=== PATIENT | female | born 1945 | race Caucasian/White ===

== ENCOUNTER 2025-10-09 13:53 | Inpatient (IN) | payer MEDICARE, SELFPAY ==
[2025-10-09] VITALS (21 sets, daily range): BP systolic 91–142; BP diastolic 37–71; PULSE 87–126; RESP 13–21; TEMP 36.7–36.9; O2SAT 88–99; BMI 29.6
--- NOTE | 2025-10-09 | IR_ITS ---
APPROVED REPORT Patient Location: Inpatient Script Supervisor: JERRY Daniel RT (R) PROCEDURES Right heart catheterization Selective engagement right pulmonary artery angiogram Selective right pulmonary artery angiogram Catheter placed in the left pulmonary artery Selective left pulmonary artery angiogram Computer assisted vacuum thrombectomy of right main and right interlobular PA Post thrombectomy right pulmonary artery selective angiogram Z-stitch suture to right groin for hemostasis INDICATION Submassive pulmonary embolism, Right ventricular strain, Elevated troponin Informed consent was obtained prior to the procedure. COMPLICATIONS None Estimated Blood Loss: 200 mls TECHNIQUE Patient placed supine on table, right groin prepped and draped in usual sterile fashion. One percent lidocaine was used to anesthetize the right groin. The right femoral vein was accessed via the Seldinger technique. 7 fr sheath inserted, upsized to 11 fr and then ending with [address] 5 fr angled pigtail catheter inserted and advanced to pulmonary arteries. Pulmonary angiogram was performed using hand injection with the catheter placed in the right main and then the left main pulmonary artery. This demonstrated filling defects in right main and right interlobular pulmonary arteries. Using a guide wire the right lower lobe was accessed and pigtail catheter removed over the wire. The lightning flash catheter was then advanced through the right side of the heart to the right pulmonary artery and aspiration thrombectomy was performed after removing the wire throughout the right pulmonary artery the upper middle and lower interlobar branches. Selective right main pulmonary artery angiogram using hand injection was performed following the extensive thrombectomy. The catheter was then used to selectively intubate the left pulmonary artery where pulmonary artery selective angiography was performed. Pulmonary artery pressure 60 mmHg lightning catheter and sheath removed, hemostasis was achieved by Z-stitch suture. Patient transferred to post op holding for recovery. 200 cc of blood was aspirated during the procedure IMPRESSION Successful Selective bilateral pulmonary angiograms Successful Computer assisted vacuum thrombectomy of right main and right interlobular pulmonary arteries Successful Pulmonary angiogram post-thrombectomy selective right PA Successful Z-stitch suture to right groin for hemostasis PLAN 1. Post op wound care. 2. Further evaluation by GI for recent GI bleed 3. Continue anticoagulation 4. Monitor H&H Electronically signed by : Haresh Sol MD 10/10/2025 10:43:58
--- NOTE | 2025-10-09 13:57 | EXP.HP ---
History of Present Illness *Admission Date: 10/09/25 *Reason for visit:: dyspnea; PE *History of present illness: Ms. Mancilla is a 80-year-old female with history of GERD, hypertension, A-fib, a remote history of blood clots, nd progressive debility who was recently discontinued off her anticoagulation for A-fib due to concern for GI bleed in the past 3 weeks. She was awaiting EGD/colonoscopy scheduled to happen within the next week. She became more weak and short of breath at her nursing facility which led to her going to the ER at [facility] last night. On arrival, workup was performed with CT PE obtained showing significant pulmonary emboli burden bilaterally with right heart strain. Was initiated on anticoagulation. Cardiology was consulted at [facility]. Their recommendation was transfer to higher level of care for further management. Cardiology service at [facility] was contacted and patient graciously accepted for further care and definitive treatment with thrombectomy. Patient excepted to medicine for transfer. On arrival she was urgently taken to [facility] for thrombectomy. Extensive clot burden removed from bilateral pulmonary vasculature with improvement in her oxygenation almost immediately. After arriving to the floor, spent some time talking to patient and reviewing her chart. States she is feeling somewhat better. Is still a little groggy from anesthesia from her thrombectomy. Son at bedside helps supplement history. Denies any chest pain, nausea, vomiting. Is currently on 6 L oxygen simple mask satting 97%. Heart rate in the 110s secondary to her A-fib. Reviewed patient's chart from [facility]. Had normal kidney function with creatinine 1.0. Coags with INR of 1.3. CT obtained today showed diffuse bilateral pulmonary emboli with evidence of right heart strain with RV to LV ratio greater than 1. Troponin elevated at 160 on their high-sensitivity test which is positive. Also had small bilateral pleural and pericardial effusion. Reportedly had been on Eliquis for A-fib and this had been held. Unsure the exact timeline. Reported concern for possible GI bleed and supposed to see gastroenterology for EGD. Patient taken for thrombectomy upon arrival to our facility. Extensive clot burden removed from bilateral pulmonary vasculature Appears her Eliquis was held within the past 10-14 days for concern for GI bleed. Has not had endoscopy as of yet to my understanding from chart review. COVID and flu negative [facility] Disclaimer: The information contained in this section may have been updated after the patient was seen, as this information can be updated by other users. Medical History Hemolytic anemia Kidney stones Hypertension Hyperlipidemia GERD (gastroesophageal reflux disease) Atrial fibrillation Arthritis Surgical History History of splenectomy History of lumpectomy Hx of tonsillectomy Hx of appendectomy Family History Father TIA (transient ischemic attack) Stroke Hypertension Social History Smoking Status: Never smoker alcohol intake: never current occupational status: retired Travel in the last 8 weeks?: None Have you lived/traveled outside US in past 30 days?: No Contact w/someone who lives/traveled outside US past 30 days?: No Exposure to someone with infectious disease in past 14 days?: No Do you have a fever (greater than 100.4 F or 38 C)?: No Have you tested positive for COVID-19?: No Exposed to someone with COVID-19 in past 14 days?: No Do you have a sore throat?: No Do you have a cough?: No Do you have any weakness?: No Are you experiencing any nausea/vomitting?: No Do you have any diarrhea?: No Are you experiencing any unusual bleeding?: No Do you have any muscle aches/pain?: No Do you have any abdominal pain?: No Are you experiencing loss of taste or smell?: No Review of Systems Review of Systems Review of systems (narrative): 14 point review of systems performed, pertinent positives and negatives as per HPI Meds Home Medications and Allergies Home Medications ?Medication ?Instructions ?Recorded ?Confirmed ?Type diltiazem HCl 60 mg tablet 60 mg PO TID 10/09/25 10/09/25 History fenofibrate 150 mg capsule 145 mg PO DAILY 10/09/25 10/09/25 History ferrous sulfate 325 mg (65 mg 325 mg PO BID 10/09/25 10/09/25 History iron) tablet metoprolol succinate 50 mg 50 mg PO DAILY 10/09/25 10/09/25 History tablet,extended release 24 hr mirtazapine 15 mg tablet (Remeron) 15 mg PO HS 10/09/25 10/09/25 History pantoprazole 40 mg tablet,delayed 40 mg PO BID 10/09/25 10/09/25 History release (Protonix) sertraline 25 mg tablet 25 mg PO DAILY 10/09/25 10/09/25 History New Prescriptions to Start Prescriptions: Allergies Allergy/AdvReac Type Severity Reaction Status Date / Time No Known Allergies Allergy Verified 10/09/25 14:06 Exam Constitutional Constitutional: no acute distress, obese, chronically ill appearing and cooperative *Routine HEENT Exam Head: Present normocephalic Eye: Present EOMI and PERRL ENT: Present mucous membranes moist Comments: Right IJ with bandage, no active bleeding *Routine Neck Exam Neck: Present supple; Absent lymphadenopathy *Routine Respiratory Exam Respiratory: Present CTA bilaterally; Absent respiratory distress, rhonchi, stridor, wheezes or crackles *Routine Cardiovascular Exam Cardiovascular: Present tachycardia and irregularly irregular *Routine Abdominal Exam Abdominal: Present soft and normoactive bowel sounds; Absent tenderness *Routine Rectal Exam Rectal:: deferred *Routine Genitalia Exam Genitalia:: deferred *Routine Extremities Exam Extremities: Present edema (Trace ankle edema bilaterally); Absent cyanosis or clubbing *Routine Skin Exam Skin: Present intact and warm; Absent rash *Routine Neurological Exam Neurological: Present alert, oriented X3 and moving all extremities; Absent altered mental status Assessment and Plan *Assessment and plan (1) Pulmonary emboli: Status: Acute Category: Medical Code(s): I26.99 - Other pulmonary embolism without acute cor pulmonale (2) Cor pulmonale, acute: Status: Acute Category: Medical Code(s): I26.09 - Other pulmonary embolism with acute cor pulmonale (3) GERD (gastroesophageal reflux disease): Status: Acute Qualifiers: Esophagitis presence: esophagitis presence not specified Qualified Code(s): K21.9 - Gastro-esophageal reflux disease without esophagitis Category: Medical Code(s): K21.9 - Gastro-esophageal reflux disease without esophagitis (4) Hypertension: Status: Acute Qualifiers: Hypertension type: primary hypertension Qualified Code(s): I10 - Essential (primary) hypertension Category: Medical Code(s): I10 - Essential (primary) hypertension (5) Hyperlipidemia: Status: Acute Qualifiers: Hyperlipidemia type: mixed hyperlipidemia Qualified Code(s): E78.2 - Mixed hyperlipidemia Category: Medical Code(s): E78.5 - Hyperlipidemia, unspecified (6) Atrial fibrillation: Status: Acute Qualifiers: Atrial fibrillation type: unspecified chronic Qualified Code(s): I48.20 - Chronic atrial fibrillation, unspecified Category: Medical Code(s): I48.91 - Unspecified atrial fibrillation (7) Anemia: Status: Acute Category: Medical Code(s): D64.9 - Anemia, unspecified (8) Hypokalemia: Status: Acute Category: Medical Code(s): E87.6 - Hypokalemia Plan 80-year-old female who presented as transfer from [facility] due to concern for cor pulmonale and submassive PE. Found to have right heart strain on CT with elevated troponin. Discussed case with electric motor repairman, recommends transfer and acceptance for thrombectomy. I decided to admit for further care. Taken urgently to the [facility] on arrival. Successful thrombectomy of right pulmonary vasculature performed. Had improvement in oxygenation. Admitted to ICU for further management. Problems addressed as follows: Pulmonary emboli Cor pulmonale Atrial fibrillation -I reviewed outside hospital records including CT read showing RV/LV ratio greater than 1, extensive burden of clot bilaterally. - Troponin elevated above 160 on fifth GEN high-sensitivity. - Significant oxygen requirement of 15 L prior to transfer - Successful thrombectomy performed. Will transition to therapeutic Lovenox 1 mg/kg twice daily. Monitor for signs of bleeding - Plan to resume Eliquis prior to discharge home - Formal echo obtained, read pending. Appears to show preserved EF on preliminary read - Resume metoprolol 50 mg succinate daily for A-fib. - Repeat CBC, CMP, magnesium ordered for the morning. - Troponin here detectable initially at 0.11. Serial levels pending Depression: Continue Zoloft 25 mg daily Suspected GI bleed - Previously held anticoagulation due to suspected GI bleed. Have consulted GI to evaluate for possible scope although patient does not have active bleeding at this time. Hemoglobin stable at 10. Transfusion threshold hemoglobin less than 7 - Continue pantoprazole 40 mg IV twice daily - N.p.o. at midnight Full code Therapeutic Lovenox Cardiac diet
[2025-10-09] MEDS: HEPARIN 1,000 UNITS/500ML NS (CATH LAB) 3000 UNIT IV (14:27)
[2025-10-09] MEDS: LIDOCAINE 1% 10ML MDV 10 ML IJ (14:27)
[2025-10-09] MEDS: 0.9 % SODIUM CHLORIDE 500 ML 25 ML IV (14:27)
[2025-10-09] MEDS: MIDAZOLAM HCL 1MG/ML 5ML VIAL 1 MG IV (14:37)
[2025-10-09] MEDS: FENTANYL 100MCG/2ML VIAL 50 MCG IV (14:37)
[2025-10-09] MEDS: HEPARIN 1,000 UNITS/ML 10ML VIAL (CATH LAB) 5000 UNIT IV (14:39)
--- NOTE | 2025-10-09 14:42 | PC.NURSE ---
patient arrived at to the unit via ems on stretcher at 1334
--- NOTE | 2025-10-09 14:42 | PC.NURSE ---
At 1403 Nithya with laboratory immunologist called saying patient was going down for pulmonary embolectomy and to obtain consent.
--- NOTE | 2025-10-09 14:43 | PC.NURSE ---
AT 1407 consent signed by patient for the procedure.
--- NOTE | 2025-10-09 15:13 | P.CONCA_ITS ---
History of Present Illness History of Present Illness Consult date: 10/09/25 Requesting physician: Jus Green Chief complaint: weakness, SOB History of present illness: This is a 80-year-old female who presented to [facility] with complaints of weakness and fatigue that had been persisting the last several weeks. She was also short of breath with exertion. It improves with rest. The patient was found to have massive bilateral pulmonary emboli with right RV strain noted on CT. The patient was then transferred here to [facility] to undergo thrombectomy. She denied any chest pain or pressur e. She denied any lower extremity edema. She denies any fever, chills, nausea, vomiting, PND or orthopnea. She has been having persistent diarrhea for the last 4 to 5 weeks and was scheduled to undergo EGD and colonoscopy with Dr. Mccurdy in the near future. She states that she has been so weak and fatigued that she could not do anything that she typically does. Her oxygen saturations were also decreased at [place] and she was requiring oxygen at 8 L nasal cannula upon arrival here to [facility]. Of note, the patient does have a history of atrial fibrillation. She has been off of her Eliquis per records from [facility] since August but it is unclear exactly why the Eliquis was stopped. [facility] Disclaimer: The information contained in this section may have been updated after the patient was seen, as this information can be updated by other users. Medical History (Updated 10/09/25 @ 15:18 by Haresh Sol MD) Hemolytic anemia Kidney stones Hypertension Hyperlipidemia GERD (gastroesophageal reflux disease) Atrial fibrillation Arthritis Surgical History (Updated 10/09/25 @ 14:35 by Linda Meyer RN) History of splenectomy History of lumpectomy Hx of tonsillectomy Hx of appendectomy Family History (Updated 10/09/25 @ 14:35 by Linda Meyer RN) TIA (transient ischemic attack) Father Hypertension Father Stroke Father Social History (Updated 10/09/25 @ 14:36 by Linda Meyer RN) Smoking Status: Never smoker alcohol intake: never current occupational status: retired Travel in the last 8 weeks?: None Have you lived/traveled outside US in past 30 days?: No Contact w/someone who lives/traveled outside US past 30 days?: No Exposure to someone with infectious disease in past 14 days?: No Do you have a fever (greater than 100.4 F or 38 C)?: No Have you tested positive for COVID-19?: No Exposed to someone with COVID-19 in past 14 days?: No Do you have a sore throat?: No Do you have a cough?: No Do you have any weakness?: No Are you experiencing any nausea/vomitting?: No Do you have any diarrhea?: No Are you experiencing any unusual bleeding?: No Do you have any muscle aches/pain?: No Do you have any abdominal pain?: No Are you experiencing loss of taste or smell?: No Review of Systems Review of Systems Review of systems:: pertinent systems reviewed and negative unless documented below Constitutional Constitutional: Reports system reviewed and no additional complaints, except as documented, Reports lethargy, Reports malaise and Reports weakness Eyes Eyes: Reports system reviewed and no additional complaints, except as documented ENT Ears, Nose, Mouth, and Throat: Reports system reviewed and no additional complaints, except as documented *Cardiovascular Cardiovascular: Reports system reviewed and no additional complaints, except as documented, Denies chest pain, Reports dyspnea and Reports dyspnea on exertion *Respiratory Respiratory: Reports system reviewed and no additional complaints, except as documented, Reports dyspnea and Reports dyspnea on exertion *Gastrointestinal Gastrointestinal: Reports system reviewed and no additional complaints, except as documented *Genitourinary Genitourinary: Reports system reviewed and no additional complaints, except as documented *Musculoskeletal Musculoskeletal: Reports system reviewed and no additional complaints, except as documented Integumentary/Breasts Skin/Breast: Reports system reviewed and no additional complaints, except as documented *Neurologic Neurologic: Reports system reviewed and no additional complaints, except as documented and Reports weakness Psychiatric Psychiatric: Reports system reviewed and no additional complaints, except as documented Endocrine Endocrine: Reports system reviewed and no additional complaints, except as documented Hematologic/Lymphatic Hematologic/Lymphatic: Reports system reviewed and no additional complaints, except as documented Allergic/Immunologic Allergic/Immunologic: Reports system reviewed and no additional complaints, except as documented Exam Data for Last 24 hours Vital signs and Labs for Last 24 Hours: Pulse Pulse Ox O2 Del Method O2 Flow Rate 122 H 95 Nasal Cannula 8 10/09/25 14:05 10/09/25 14:05 10/09/25 14:05 10/09/25 14:05 Laboratory Results - last 24 hr 10/09/25 14:34: WBC 10.0, RBC 1.96 L*, Hgb 10.0 L, Hct 16.2 L*, MCV 82.7, MCH 51.0 H*, MCHC 61.7 H*, RDW 16.3, Plt Count 320, MPV 11.4 H, Neut % (Auto) 76.2, Lymph % (Auto) 13.8, [place] % (Auto) 8.4, Eos % (Auto) 0.1, Baso % (Auto) 0.1, Neut # (Auto) 7.6, Lymph # (Auto) 1.4, [place] # (Auto) 0.8, Eos # (Auto) 0.0, Baso # (Auto) 0.0 I & O for Last 24 hours: Intake & Output 10/07/25 10/08/25 10/09/25 10/10/25 11:59 11:59 11:59 11:59 Weight 162 lb 0.636 oz Constitutional Constitutional: mild distress and average body habitus *Routine HEENT Exam Head: Present normocephalic Eye: Present EOMI and PERRL ENT: Present mucous membranes moist *Routine Neck Exam Neck: Present supple; Absent lymphadenopathy *Routine Respiratory Exam Respiratory: Present decreased breath sounds *Routine Cardiovascular Exam Cardiovascular: Present RRR, Normal S1, Normal S2 and tachycardia *Routine Abdominal Exam Abdominal: Present soft and normoactive bowel sounds; Absent tenderness *Routine Extremities Exam Extremities: Absent cyanosis, clubbing or edema *Routine Skin Exam Skin: Present warm; Absent rash *Routine Neurological Exam Neurological: Present alert and oriented X3 Meds Home Medications and Allergies Home Medications ?Medication ?Instructions ?Recorded ?Confirmed ?Type diltiazem HCl 60 mg tablet 60 mg PO TID 10/09/2510/09 History fenofibrate 150 mg capsule 145 mg PO DAILY 10/09/25 History ferrous sulfate 325 mg (65 mg 325 mg PO BID 10/09/25 1 12/09/24 History iron) tablet metoprolol succinate 50 mg 50 mg PO DAILY 10/09/2510/23 History tablet,extended release 24 hr mirtazapine 15 mg tablet (Remeron) 15 mg PO HS 5 10/09/25 History pantoprazole 40 mg tablet,delayed 40 mg PO BID 5 10/09/25 History release (Protonix) sertraline 25 mg tablet 25 mg PO DAILY 10/09/2509/29 History New Prescriptions to Start Prescriptions: Allergies Allergy/AdvReac Type Severity Reaction Status Date / Time No Known Allergies Allergy Verified 10/09/25 14:06 Assessment and Plan *Assessment and plan (1) Pulmonary emboli: Status: Acute Qualifiers: Pulmonary embolism type: saddle Chronicity: acute Acute cor pulmonale presence: with acute cor pulmonale Qualified Code(s): I26.02 - Saddle embolus of pulmonary artery with acute cor pulmonale Category: Medical Code(s): I26.99 - Other pulmonary embolism without acute cor pulmonale (2) Cor pulmonale, acute: Status: Acute Category: Medical Code(s): I26.09 - Other pulmonary embolism with acute cor pulmonale (3) Atrial fibrillation: Status: Acute Qualifiers: Atrial fibrillation type: unspecified chronic Qualified Code(s): I48.20 - Chronic atrial fibrillation, unspecified Category: Medical Code(s): I48.91 - Unspecified atrial fibrillation (4) Hyperlipidemia: Status: Acute Qualifiers: Hyperlipidemia type: mixed hyperlipidemia Qualified Code(s): E78.2 - Mixed hyperlipidemia Category: Medical Code(s): E78.5 - Hyperlipidemia, unspecified (5) Hypertension: Status: Acute Qualifiers: Hypertension type: primary hypertension Qualified Code(s): I10 - Essential (primary) hypertension Category: Medical Code(s): I10 - Essential (primary) hypertension (6) GERD (gastroesophageal reflux disease): Status: Acute Qualifiers: Esophagitis presence: esophagitis presence not specified Qualified Code(s): K21.9 - Gastro-esophageal reflux disease without esophagitis Category: Medical Code(s): K21.9 - Gastro-esophageal reflux disease without esophagitis Plan Plan: 1. The patient was admitted here to [facility] for massive bilateral pulmonary emboli with RV strain. The patient will be taken to the [facility] to undergo mechanical thrombectomy of the bilateral pulmonary emboli. 2. The patient has been educated the risk and benefits of proceeding with thrombectomy. The patient verbalizes understanding and is agreeable to proceed ing with the procedure. 3. The patient will need to be anticoagulated following thrombectomy. She will need to be started on Eliquis 10 mg p.o. twice daily for 1 week then Eliquis 5 mg p.o. twice daily thereafter. 4. The patient does have known atrial fibrillation. Continue her metoprolol and diltiazem for atrial fibrillation suppression. And as mentioned above she will be on anticoagulation with Eliquis. 5. Her blood pressure is well-controlled. 7. Her LDL goal is less than 100. Will get a liver and lipid panel in the morning. 8. Will obtain an echocardiogram to evaluate her LV function. 9. Will obtain a CBC, BMP, and serial troponins. 10. Further recommendations will be made pending the patient's response to treatment and the results of her echocardiogram and thrombectomy today. Thank you for the opportunity to help dissipate in the care of this patient.
--- NOTE | 2025-10-09 15:22 | CA_ITS ---
APPROVED REPORT EXAM: Comprehensive 2D, Doppler, and color-flow Echocardiogram Industrial Sales Engineer: Latasha Katz RT(R) Ht: 5 ft 2 in Wt: 162lbs BSA: 1.75 BP: 135/74 mmHg Indications: post thrombectomy for pulmonary embolism. right heart strain seen on CT at outside facility. 2D Dimensions LVEF (Harden's) 67.10 % F: 54 - 74 LV Volume 58.70 mL F: 46 - 106 LV Volume Index 33.5 mL/m2 F: 29 - 61 LA Volume 53.30 mL LA Volume Index 30.46 mL/m2 (M/F) 16-34 EF AP4 66.40 % EF AP2 67.3 % EF BP 67.1 % GL Strain -16.2 % M-Mode Dimensions RVDd 3.40 cm (0.9-2.6) LA Diam 4.13 cm (1.9-4.0) LVDd 3.53 cm (3.5-5.7) LVDs 2.55 cm (3.5-5.7) IVSd 1.15 cm (0.6-1.1) PWd 0.72 cm (0.6-1.1) EF (Teich) 54.90% FS 27.80% EDV (Teich) 51.90 mL ESV (Teich) 23.40 mL Aortic Valve AI PHT 610.00 ms Tricuspid Valve TR P. Velocity 318.00 cm/s RAP Estimate 10.00 mmHg RVSP 50.50 mmHg Left Ventricle The left ventricle is normal size. Left ventricular systolic function is normal. The left ventricular ejection fraction is within the normal range. There is increased left ventricular wall thickness. There is normal LV segmental wall motion. Transmitral Doppler flow pattern suggests impaired LV relaxation. LVEF is 55% Right Ventricle Right ventricle is moderately dilated. Right ventricle is moderately to severely hypokinetic. Atria Left atrium is moderately dilated. Right atrium is moderately dilated. There is no color Doppler evidence of interatrial shunt. Aortic Valve The aortic valve is mildly thickened. There is no hemodynamically significant aortic valvular stenosis. Mild aortic regurgitation is present. Mitral Valve The mitral valve is normal in structure. No evidence of mitral valve stenosis. Mild mitral regurgitation is present. Tricuspid Valve The tricuspid valve leaflets are thin and pliable. Moderate tricuspid regurgitation. RVSP is 35-40 mmHg. Pulmonic Valve The pulmonary valve is grossly normal in structure. Mild pulmonic valve regurgitation is present. Great Vessels The aortic root is normal in size. IVC is normal in size and collapses >50% with inspiration. Pericardium There is no pericardial effusion. Other Information Study Quality: Fair Conclusion Normal LV systolic function. Moderate RV dilation with moderate to severe reduction in RV systolic function. Biatrial dilation. Moderate TR. Mild AI, mild MR. RVSP 35-40 mmHg. Electronically signed by : Emily Zuñiga MD 10/11/2025 03:39:53
[2025-10-09 15:27] LABS: Alanine Aminotransferase 14 U/L (12-78); Albumin Level 2.6 g/dl (3.5-5.0); Albumin/Globulin Ratio 0.8 (1.1-1.8); Alkaline Phosphatase 73 U/L (38-126); Anion Gap 8.8 mEq/L (5-15); Aspartate Amino Transferase 33 U/L (14-36); Bilirubin,Total 0.8 mg/dl (0.2-1.3); Blood Urea Nitrogen 9 mg/dl (7-17); Calcium 7.3 mg/dl (8.4-10.2); Carbon Dioxide 25 mmol/L (22.0-30.0); Chloride 100 mmol/L (98-107); Creatinine Clearance Estimated 54 mL/min (50-200); Creatinine,Serum 0.80 mg/dl (0.52-1.04); Estimated Glomerular Filt Rate 69 ml/min (>60); GFR (African American) 84 ML/MIN (>60); Globulin 3.2 g/dL (1.3-3.2); Glucose 99 mg/dl (74-100); Sodium 131 mmol/L (136-145); Total Protein,Serum 5.8 g/dl (6.3-8.2)
[2025-10-09] MEDS: IOPAMIDOL-370 (76%);100ML BOTTLE 105 ML IV (15:33)
[2025-10-09 15:37] LABS: Potassium 2.8 mmoL/L (3.5-5.1)
--- NOTE | 2025-10-09 15:57 | PC.NURSE ---
patient arrived back from the labor crew supervisor via stretcher at 1974
[2025-10-09 15:58] LABS: Troponin I 0.11 ng/ml (0.00-0.034)
[2025-10-09 16:22] LABS: Hematocrit 28.4 % (37.0-47.0); Hemoglobin 10.0 g/dL (12.2-16.2); Immature Granulocytes % 1.1 %; Mean Corpuscular HGB Conc 35.2 g/dL (31.8-35.4); Mean Corpuscular Hemoglobin 29.5 pg (27.0-31.2); Mean Corpuscular Volume 83.8 fl (81-99); Nucleated Red Blood Cells % 0.7 %; Platelet Count 335 K/mm3 (142-424); Red Blood Count 3.39 M/mm3 (4.20-5.40); Red Cell Distribution Width-SD 56.7 fL
[2025-10-09 16:23] LABS: White Blood Count 10.8 K/mm3 (4.8-10.8)
--- NOTE | 2025-10-09 17:21 | PC.NURSE ---
z stitch removed at 1715 covered site with sterile clean 4x4 and tegaderm
[2025-10-09] MEDS: POTASSIUM CHLORIDE 20MEQ TAB 40 MEQ PO ×3 (17:37→23:47)
[2025-10-09] MEDS: CALCIUM GLUC IN NACL, ISO-OSM 1 GM/50 ML BAG IV (18:04)
[2025-10-09 18:40] LABS: Troponin I 0.23 ng/ml (0.00-0.034)
[2025-10-09] MEDS: PANTOPRAZOLE 40MG VIAL 40 MG IV (20:05)
--- NOTE | 2025-10-09 20:52 | ECG_ITS ---
APPROVED REPORT Exam: Resting ECG HR:119 bpm ECG Measurements Heart Rate 119 AXES QRSd 134 QRS 74 QT 380 T -60 QTc 451 Conclusion ATRIAL FIBRILLATION WITH RAPID VENTRICULAR RESPONSE INTRAVENTRICULAR CONDUCTION DELAY [130+ ms QRS DURATION] ABNORMAL ECG UNCONFIRMED REPORT Electronically signed by : Edi Mackey MD 10/10/2025 07:53:55
--- NOTE | 2025-10-09 20:52 | PC.NURSE ---
Notified hospitalist per her request that EKG was done and able to be read at 205110/09/25
[2025-10-10] VITALS (32 sets, daily range): BP systolic 93–124; BP diastolic 53–84; PULSE 109–137; RESP 14–25; TEMP 36.4–37.1; O2SAT 90–94; BMI 29.8
[2025-10-10] MEDS: METOPROLOL TARTRATE 5MG/5ML VIAL 2.5 MG IV ×2 (03:30→04:03)
[2025-10-10 06:21] LABS: Hematocrit 26.8 % (37.0-47.0); Hemoglobin 9.4 g/dL (12.2-16.2); Immature Granulocytes % 1.3 %; Mean Corpuscular HGB Conc 35.1 g/dL (31.8-35.4); Mean Corpuscular Hemoglobin 28.9 pg (27.0-31.2); Mean Corpuscular Volume 82.5 fl (81-99); Nucleated Red Blood Cells % 1.3 %; Platelet Count 344 K/mm3 (142-424); Red Blood Count 3.25 M/mm3 (4.20-5.40); Red Cell Distribution Width-SD 56.6 fL; White Blood Count 8.5 K/mm3 (4.8-10.8)
[2025-10-10 06:49] LABS: Alanine Aminotransferase 17 U/L (12-78); Albumin Level 2.4 g/dl (3.5-5.0); Alkaline Phosphatase 77 U/L (38-126); Anion Gap 5.6 mEq/L (5-15); Aspartate Amino Transferase 27 U/L (14-36); Bilirubin,Direct 0.2 mg/dl (0.0-0.4); Bilirubin,Indirect 0.4 mg/dL (0.0-0.9); Bilirubin,Total 0.6 mg/dl (0.2-1.3); Bilirubin,Unconjugated 0.4 mg/dL (0.0-1.1); Blood Urea Nitrogen 8 mg/dl (7-17); Calcium 7.9 mg/dl (8.4-10.2); Carbon Dioxide 26 mmol/L (22.0-30.0); Chloride 103 mmol/L (98-107); Cholesterol 97 mg/dl (140-200); Creatinine Clearance Estimated 54 mL/min (50-200); Creatinine,Serum 0.90 mg/dl (0.52-1.04); Estimated Glomerular Filt Rate 61 ml/min (>60); GFR (African American) 73 ML/MIN (>60); Glucose 99 mg/dl (74-100); HDL Cholesterol 49 mg/dl (40-60); Potassium 3.6 mmoL/L (3.5-5.1); Sodium 131 mmol/L (136-145); Total Protein,Serum 5.0 g/dl (6.3-8.2); Triglycerides 181 mg/dl (30-150)
--- NOTE | 2025-10-10 07:26 | P.CONS_ITS ---
History of Present Illness *Admission Date: 10/09/25 *History of present illness: Mrs. Mancilla is a 80-year-old female who was admitted with pulmonary embolus. She does have a history of atrial fibrillation and a remote history of blood clots. Her anticoagulation was discontinued over the last 3 weeks because of concern for GI bleed and she was awaiting EGD and colonoscopy which was scheduled in [facility] within the next week. She became weak with dyspnea at the nursing facility and was brought to the ED. She had CT pulmonary embolus protocol and was found to have pulmonary emboli. Cardiology excepted the patient and she went to the [facility] where she had prompt thrombectomy. Now, she has been off of Eliquis for 10 to 14 days and there is still concern for GI bleed. The patient's hemoglobin and hematocrit were 10.0 and 28.4 on admission. Her MCV was 83.8. The patient reports no abdominal pain, change in her bowel habits, melena, hematochezia or bright red blood per rectum. She did have a colonoscopy several years ago. [facility] Disclaimer: The information contained in this section may have been updated after the patient was seen, as this information can be updated by other users. Medical History Hemolytic anemia Kidney stones Hypertension Hyperlipidemia GERD (gastroesophageal reflux disease) Atrial fibrillation Arthritis Surgical History History of splenectomy History of lumpectomy Hx of tonsillectomy Hx of appendectomy Family History Father TIA (transient ischemic attack) Stroke Hypertension Social History Smoking Status: Never smoker alcohol intake: never current occupational status: retired Travel in the last 8 weeks?: None Have you lived/traveled outside US in past 30 days?: No Contact w/someone who lives/traveled outside US past 30 days?: No Exposure to someone with infectious disease in past 14 days?: No Do you have a fever (greater than 100.4 F or 38 C)?: No Have you tested positive for COVID-19?: No Exposed to someone with COVID-19 in past 14 days?: No Do you have a sore throat?: No Do you have a cough?: No Do you have any weakness?: No Are you experiencing any nausea/vomitting?: No Do you have any diarrhea?: No Are you experiencing any unusual bleeding?: No Do you have any muscle aches/pain?: No Do you have any abdominal pain?: No Are you experiencing loss of taste or smell?: No Review of Systems Constitutional Constitutional: Reports weakness *Neurologic Neurologic: Reports system reviewed and no additional complaints, except as documented and Reports weakness Meds Home Medications and Allergies Home Medications ?Medication ?Instructions ?Recorded ?Confirmed ?Type diltiazem HCl 60 mg tablet 60 mg PO TID 10/09/2510/09 History fenofibrate 150 mg capsule 145 mg PO DAILY 10/09/25 History ferrous sulfate 325 mg (65 mg 325 mg PO BID 10/09/25 1 12/09/24 History iron) tablet metoprolol succinate 50 mg 50 mg PO DAILY 10/09/2510/23 History tablet,extended release 24 hr mirtazapine 15 mg tablet (Remeron) 15 mg PO HS 5 10/09/25 History pantoprazole 40 mg tablet,delayed 40 mg PO BID 5 10/09/25 History release (Protonix) sertraline 25 mg tablet 25 mg PO DAILY 10/09/2509/29 History New Prescriptions to Start Prescriptions: Allergies Allergy/AdvReac Type Severity Reaction Status Date / Time No Known Allergies Allergy Verified 10/09/25 14:06 Exam (Inpt) Vital signs and Labs for Last 24 Hours: Temp Pulse Resp BP Pulse Ox O2 Del Method O2 Flow Rate 98.3 F 125 H 18 109/68 L 94 L Nasal Cannula 1 10/10/25 04:00 10/10/25 06:00 10/10/25 06:00 10/10/25 06:00 10/10/25 06:00 10/10/25 06:45 10/10/25 06:45 Laboratory Results - last 24 hr 10/09/25 14:34: WBC Cancelled, Corrected WBC Cancelled, RBC Cancelled, Hgb Cancelled, Hct Cancelled, MCV Cancelled, MCH Cancelled, MCHC Cancelled, RDW Cancelled, Plt Count Cancelled, MPV Cancelled, Neut % (Auto) Cancelled, Lymph % (Auto) Cancelled, [place] % (Auto) Cancelled, Eos % (Auto) Cancelled, Baso % (Auto) Cancelled, Neut # (Auto) Cancelled, Lymph # (Auto) Cancelled, [place] # (Auto) Cancelled, Eos # (Auto) Cancelled, Baso # (Auto) Cancelled, Sodium 131 L, P otassium 2.8 L*, Chloride 100, Carbon Dioxide 25, Anion Gap 8.8, BUN 9, Creatinine 0.80, Estimated Creat Clear 54, Estimated GFR 69, Est GFR ( Amer) 84, Glucose 99, Calcium 7.3 L, Total Bilirubin 0.8, AST 33, ALT 14, Alkaline Phosphatase 73, Troponin I 0.11 H, Total Protein 5.8 L, Albumin 2.6 L, Globulin 3.2, Albumin/Globulin Ratio 0.8 L 10/09/25 15:25: WBC 10.8, RBC 3.39 L, Hgb 10.0 L, Hct 28.4 L, MCV 83.8, MCH 29.5, MCHC 35.2, RDW 20.3 H, Plt Count 335, MPV 12.3 H, Neut % (Auto) 76.3, Lymph % (Auto) 14.4, [place] % (Auto) 8.1, Eos % (Auto) 0.1, Baso % (Auto) 0.0 L, N eut # (Auto) 8.2 H, Lymph # (Auto) 1.6, [place] # (Auto) 0.9, Eos # (Auto) 0.0, Baso # (Auto) 0.0, Blood Type Cancelled, Antibody Screen Cancelled 10/09/25 18:07: Troponin I 0.23 H 10/10/25 05:57: WBC 8.5, RBC 3.25 L, Hgb 9.4 L, Hct 26.8 L, MCV 82.5, MCH 28.9, MCHC 35.1, RDW 19.9 H, Plt Count 344, MPV 11.2 H, Neut % (Auto) 64.5, Lymph % (Auto) 23.8, [place] % (Auto) 9.5 H, Eos % (Auto) 0.8, Baso % (Auto) 0.1, Neut # (Auto) 5.5, Lymph # (Auto) 2.0, [place] # (Auto) 0.8, Eos # (Auto) 0.1, Baso # (Auto) 0.0, Sodium 131 L, Potassium 3.6 D, Chloride 103, Carbon Dioxide 26, Anion Gap 5.6, BUN 8, Creatinine 0.90, Estimated Creat Clear 54, Estimated GFR 61, Est GFR ( Amer) 73, Glucose 99, Calcium 7.9 L, Total Bilirubin 0.6, Direct Bilirubin 0.2, Conjugated Bilirubin 0.0, Indirect Bilirubin 0.4, Unconjugated Bilirubin 0.4, AST 27, ALT 17, Alkaline Phosphatase 77, Total Protein 5.0 L, Albumin 2.4 L, Triglycerides 181 H, Cholesterol 97 L, LDL Cholesterol Direct 43.22 L, VLDL Cholesterol 36, HDL Cholesterol 49, Cholesterol/HDL Ratio 2.0 I & O for Labs for Last 24 Hours: Intake & Output 10/07/25 10/08/25 10/09/25 10/10/25 23:59 23:59 23:59 23:59 Intake Total 130 / 130 Output Total 300 / 300 Balance 130 / 130 -300 / -300 Weight 162 lb 0.636 oz 162 lb 0.636 oz Comments:: Normoactive bowel sounds, soft, nondistended, nontender, benign abdomen Results Labs 10/10/25 05:57 10/10/25 05:57 Labs: Laboratory Results - last 24 hr 10/09/25 14:34: WBC Cancelled, Corrected WBC Cancelled, RBC Cancelled, Hgb Cancelled, Hct Cancelled, MCV Cancelled, MCH Cancelled, MCHC Cancelled, RDW Cancelled, Plt Count Cancelled, MPV Cancelled, Neut % (Auto) Cancelled, Lymph % (Auto) Cancelled, [place] % (Auto) Cancelled, Eos % (Auto) Cancelled, Baso % (Auto) Cancelled, Neut # (Auto) Cancelled, Lymph # (Auto) Cancelled, [place] # (Auto) Cancelled, Eos # (Auto) Cancelled, Baso # (Auto) Cancelled, Sodium 131 L, P otassium 2.8 L*, Chloride 100, Carbon Dioxide 25, Anion Gap 8.8, BUN 9, Creatinine 0.80, Estimated Creat Clear 54, Estimated GFR 69, Est GFR ( Amer) 84, Glucose 99, Calcium 7.3 L, Total Bilirubin 0.8, AST 33, ALT 14, Alkaline Phosphatase 73, Troponin I 0.11 H, Total Protein 5.8 L, Albumin 2.6 L, Globulin 3.2, Albumin/Globulin Ratio 0.8 L 10/09/25 15:25: WBC 10.8, RBC 3.39 L, Hgb 10.0 L, Hct 28.4 L, MCV 83.8, MCH 29.5, MCHC 35.2, RDW 20.3 H, Plt Count 335, MPV 12.3 H, Neut % (Auto) 76.3, Lymph % (Auto) 14.4, [place] % (Auto) 8.1, Eos % (Auto) 0.1, Baso % (Auto) 0.0 L, N eut # (Auto) 8.2 H, Lymph # (Auto) 1.6, [place] # (Auto) 0.9, Eos # (Auto) 0.0, Baso # (Auto) 0.0, Blood Type Cancelled, Antibody Screen Cancelled 10/09/25 18:07: Troponin I 0.23 H 10/10/25 05:57: WBC 8.5, RBC 3.25 L, Hgb 9.4 L, Hct 26.8 L, MCV 82.5, MCH 28.9, MCHC 35.1, RDW 19.9 H, Plt Count 344, MPV 11.2 H, Neut % (Auto) 64.5, Lymph % (Auto) 23.8, [place] % (Auto) 9.5 H, Eos % (Auto) 0.8, Baso % (Auto) 0.1, Neut # (Auto) 5.5, Lymph # (Auto) 2.0, [place] # (Auto) 0.8, Eos # (Auto) 0.1, Baso # (Auto) 0.0, Sodium 131 L, Potassium 3.6 D, Chloride 103, Carbon Dioxide 26, Anion Gap 5.6, BUN 8, Creatinine 0.90, Estimated Creat Clear 54, Estimated GFR 61, Est GFR ( Amer) 73, Glucose 99, Calcium 7.9 L, Total Bilirubin 0.6, Direct Bilirubin 0.2, Conjugated Bilirubin 0.0, Indirect Bilirubin 0.4, Unconjugated Bilirubin 0.4, AST 27, ALT 17, Alkaline Phosphatase 77, Total Protein 5.0 L, Albumin 2.4 L, Triglycerides 181 H, Cholesterol 97 L, LDL Cholesterol Direct 43.22 L, VLDL Cholesterol 36, HDL Cholesterol 49, Cholesterol/HDL Ratio 2.0 Assessment and Plan *Assessment and plan (1) Anemia: Status: Acute Category: Medical Code(s): D64.9 - Anemia, unspecified Plan 1. Anemia with concern for GI bleed recently. Eliquis was held and the patient subsequently had pulmonary emboli off of anticoagulation and will need to remain on anticoagulation. I do feel that there is merit in doing the EGD and colonoscopy presently but I would like for her to have better rate control of her atrial fibrillation and I will discuss with anesthesia. We may start with the EGD and and if we find source of bleeding, may not need colonoscopy. I will also obtain Hemoccult testing and iron studies.
[2025-10-10] MEDS: SERTRALINE 50MG TABLET 25 MG PO (08:08)
[2025-10-10] MEDS: METOPROLOL SUCCINATE XL 50MG TABLET 50 MG PO (08:08)
[2025-10-10] MEDS: PANTOPRAZOLE 40MG VIAL 40 MG IV ×2 (08:08→20:03)
--- NOTE | 2025-10-10 09:47 | HMH.PTEV ---
Physical Therapy Evaluation Rehab PT IP Evaluation Start: 10/09/25 14:39 Freq: ONCE Status: Active Protocol: Document 10/10/25 09:35 ANGELA (Rec: 10/10/25 09:47 ANGELA [id number]) Subjective/History History History Per H&P: Ms. Mancilla is a 80-year-old female with history of GERD, hypertension, A-fib, a remote history of blood clots, nd progressive debility who was recently discontinued off her anticoagulation for A-fib due to concern for GI bleed in the past 3 weeks. She was awaiting EGD/colonoscopy scheduled to happen within the next week. She became more weak and short of breath at her nursing facility which led to her going to the ER at [facility] last night. On arrival, workup was performed with CT PE obtained showing significant pulmonary emboli burden bilaterally with right heart strain. Was initiated on anticoagulation. Cardiology was consulted at [facility]. Their recommendation was transfer to higher level of care for further management . Cardiology service at [facility] was contacted and patient graciously accepted for further care and definitive treatment with thrombectomy. Patient excepted to medicine for transfer. On arrival she was urgently taken to [facility] [employer] Specialist for thrombectomy. Extensive clot burden removed from bilateral pulmonary vasculature with improvement in her oxygenation almost immediately. After arriving to the floor, spent some time talking to patient and reviewing her chart. States she is feeling somewhat better. Is still a little groggy from anesthesia from her thrombectomy. Son at bedside helps supplement history. Denies any chest pain, nausea, vomiting. Is currently on 6 L oxygen simple mask satting 97%. Heart rate in the 110s secondary to her A-fib. Reviewed patient's chart from [facility]. Had normal kidney function with creatinine 1.0. Coags with INR of 1.3. CT obtained today showed diffuse bilateral pulmonary emboli with evidence of right heart strain with RV to LV ratio greater than 1. Troponin elevated at 160 on their high-sensitivity test which is positive . Also had small bilateral pleural and pericardial effusion. Reportedly had been on Eliquis for A-fib and this had been held. Unsure the exact timeline. Reported concern for possible GI bleed and supposed to see gastroenterology for EGD. Patient taken for thrombectomy upon arrival to our facility. Extensive clot burden removed from bilateral pulmonary vasculature Appears her Eliquis was held within the past 10-14 days for concern for GI bleed. Has not had endoscopy as of yet to my understanding from chart review. Subjective Subjective Pt reports she lives with her son in a SS ranch style home. Pt reports she is normally IND with all mobility using a RW. Pt reports her son is available 24/7 if needed. New diagnosis of No cancer in past 12 months? [facility] How much help from another person do you currently need... Turning from your None back to your side while in a flat bed without using bedrails? Moving from lying on A little back to sitting on the side of a flat bed without using bedrails? Moving to and from a None bed to a chair ( including a wheelchair)? Standing up from a None chair using your arms? (e.g., wheelchair, bedside chair) Walking in hospital A little room? Climbing 3-5 steps A lot with a railing? Mobility Score 20 Mobility Level [facility] Mobility 6 Walk 10 steps or more Mobility Calculator Rehab PT IP Eval Objective Appearance Patient Behavior Appropriate,Cooperative Patient Orientation Person,Situation Difficulty following none instructions Speech Pattern Clear Ambulation Patient Able to Yes Ambulate Ambulation Observation IP General Gait Decrease Stride Lngth (R),Decrease Stride Lngth (L) Pattern Observation Ambulation Distance 18 (feet) Ambulation Assistive Rolling Walker Device Ambulation Ability Supervision/Stand by Balance Ability to Arise Able, uses arms to help Sitting Balance Steady, safe Standing Balance Steady, wide stance Dynamic Sitting Good Balance Ability Dynamic Standing Fair Balance Ability Transfers Bed Transfer Ability Minimal x 1 (25% assist) Sit to Stand Bed Supervision/Stand by Transfer Ability Sit to Stand Chair Supervision/Stand by Transfer Ability Rehab PT IP prob,goals,plan Problems Date of Evaluation: 10/10/25 PT IP Problems Bed Mobility,Transfers,Gait,Balance,Self care,Safety Rehab Potential Rehab Potential Good Plan PT Intervention Plan Bed Mobility,Transfers,Gait,Balance,Self care,Safety, Therapeutic Exercise Other Intervention 1-2 times Plan PT Plan Frequency Daily Duration LOS Discharge Goals Bed Transfer Ability Independent Sit to Stand Chair Independent Transfer Ability Ambulation Assistive Rolling Walker Device Ambulation Distance 40 (feet) Discharge Plan PT Discharge Plan Pt presents below her baseline in functional mobility and would benefit from skilled acute care PT while at [facility]. Pt most appropriate for d/c home with 24/7 care by family and HH services. If pt does not have adequate 24/7 assist at home, pt would benefit from inpatient rehabilitation up d/c from [facility]. Eval Complexity Eval Charge Codes 24859 - Moderate Complexity PHYSICIAN CERTIFICATION: I certify the specified therapy services for Lisa Mancilla are required, authorized, and reviewed every 30 days.
[2025-10-10 09:52] LABS: Iron 62 ug/dL (37-170)
--- NOTE | 2025-10-10 09:57 | HMH.OTEV ---
OT Evaluation Rehab OT IP Evaluation Start: 10/09/25 14:39 Freq: ONCE Status: Active Protocol: Document 10/10/25 09:37 ARIELLA (Rec: 10/10/25 09:57 ARIELLA [id number]) Rehab OT IP Assessment Subjective History Per History of present illness: Ms. Mancilla is a 80-year-old female with history of GERD, hypertension, A-fib, a remote history of blood clots, nd progressive debility who was recently discontinued off her anticoagulation for A-fib due to concern for GI bleed in the past 3 weeks. She was awaiting EGD/colonoscopy scheduled to happen within the next week. She became more weak and short of breath at her nursing facility which led to her going to the ER at [facility] last night. On arrival, workup was performed with CT PE obtained showing significant pulmonary emboli burden bilaterally with right heart strain. Was initiated on anticoagulation. Cardiology was consulted at [facility]. Their recommendation was transfer to higher level of care for further management . Cardiology service at [facility] was contacted and patient graciously accepted for further care and definitive treatment with thrombectomy. Patient excepted to medicine for transfer. On arrival she was urgently taken to [employer] [employer] for thrombectomy. Extensive clot burden removed from bilateral pulmonary vasculature with improvement in her oxygenation almost immediately. After arriving to the floor, spent some time talking to patient and reviewing her chart. States she is feeling somewhat better. Is still a little groggy from anesthesia from her thrombectomy. Son at bedside helps supplement history. Denies any chest pain, nausea, vomiting. Is currently on 6 L oxygen simple mask satting 97%. Heart rate in the 110s secondary to her A-fib. Reviewed patient's chart from [place]. Had normal kidney function with creatinine 1.0. Coags with INR of 1.3. CT obtained today showed diffuse bilateral pulmonary emboli with evidence of right heart strain with RV to LV ratio greater than 1. Troponin elevated at 160 on their high-sensitivity test which is positive . Also had small bilateral pleural and pericardial effusion. Reportedly had been on Eliquis for A-fib and this had been held. Unsure the exact timeline. Reported concern for possible GI bleed and supposed to see gastroenterology for EGD. Patient taken for thrombectomy upon arrival to our facility. Extensive clot burden removed from bilateral pulmonary vasculature Subjective I live with my son. Pt was supine in bed when therapy entered. pt agreed to OT eval this AM. Pt orient x3. Pt reported they live with son in home with step up into home. Pt reported they do not normally wear O2 and use a walker and cane for FM. Pt reported they had used a w/c some for FM. Pt reported Ind in transfers and Ind in ADLs and need assist with IADLs. Pt reported they do not drive. Pt reported they fell last yr and broke a wrist and hip. Pt reported they had to use bathroom for BM. Pt went from supine to EOB with Min A. Pt then completed STS with walker with Min A . Pt then completed FM task to bedside commode with walker and CGA of aprox 8 ft. Therapist assisted in toileting hygiene and pt was able to pull up one side of brief. Pt then completed STS with Min A and then completed FM task to EOB with CGA of aprox 8 ft. Pt then sat on EOB and went to supine position with Min A as pt was very tired. pt left supine in bed with call light and all other needs within reach. CM was notified of pt and they reported that pt was not from intermediate. Objective Patient Orientation Person,Place,Situation Right Upper WFL Extremity Gross ROM Left Upper Extremity WFL Gross ROM Bed Mobility bed mobility-scooting,bed mobility - supine/sit Assist Level Minimal x 1 (25% assist) Transfer Training Sit/Stand Transfer Assist Level Minimal x 1 (25% assist) Chair Transfer Minimal x 1 (25% assist) Ability Chair Transfer Sit to/from Ambulatory Technique Chair Transfer Standard Walker Assistive Devices Performing Toilet Maximum Assistance Hygiene Ability Overall Commode/ Minimal Assistance Toilet Transfer Ability Commode/Toilet Sit to/from Ambulatory Transfer Technique Commode/Toilet Toilet Rails Transfer Assistive Devices Decrease in Yes Endurance Rehab OT IP prob,goals,plan Problems Date of Evaluation: 10/10/25 OT IP Problems Bed Mobility,Transfers,Balance,Self care,Safety Rehab Potential Rehab Potential Good Equipment Needs Assistive Devices Standard Walker Plan OT intervention Plan Bed Mobility,Transfers,Balance,Self care,Safety, Therapeutic Exercise OT Plan Frequency Daily Duration LOS Discharge Goals Bed Mobility Ability Standby Assistance Sit to Stand Chair Supervision/Stand by Transfer Ability Chair Transfer Supervision/Stand by Ability Chair Transfer Sit to/from Ambulatory Technique Chair Transfer Standard Walker,Straight Cane,Rolling Walker Assistive Devices Feeding Ability Assist with Tray Set Up Performing Toilet Standby Assistance Hygiene Ability Overall Commode/ Standby Assistance Toilet Transfer Ability Commode/Toilet Sit to/from Ambulatory Transfer Technique Commode/Toilet Raised Toilet Seat,Toilet Rails,Grab Bars Transfer Assistive Devices Decrease in No Endurance Discharge Plan OT Discharge Plan At this time, pt could benefit from skilled acute OT services and interventions while admitted at [facility]. Once DC from [facility], pt could benefit from rehab placement to address functional limitations in occupational performance. If pt has 24/ care and assist, pt could go home with OT HH to address functional limitations in occupational performance. Eval Complexity Eval Charge Codes 55563 - Moderate Complexity PHYSICIAN CERTIFICATION: I certify the specified therapy services for Lisa Mancilla are required, authorized, and reviewed every 30 days.
[2025-10-10 10:01] LABS: Total Iron Binding Capacity 105 ug/dL (265-497)
--- NOTE | 2025-10-10 10:09 | EXP.CARD.PN ---
Subjective Subjective Date: 10/10/25 Time: 08:30 Principal diagnosis: Bilateral PEs Interval history: This is a 80-year-old white female who presented to [facility] with weakness and fatigue. The patient was found to have massive bilateral pulmonary emboli with RV strain. She was then transferred here to [facility] and underwent thrombectomy yesterday for the massive bilateral pulmonary emboli. The patient was taken to the Registered Nurse Supervisor and underwent mechanical thrombectomy of the right pulmonary emboli. Left pulmonary artery was not intervened on due to low HCT reported by lab. She did tolerate the procedure well. The patient's long-term anticoagulation had been stopped because she had been having persistent diarrhea for the last 4 to 5 weeks and there was concern for a GI bleed. The patient developed these pulmonary emboli while off of her anticoagulation. The patient will have to be on anticoagulation at this time due to the bilateral PEs. GI has been consulted for further evaluation of her GI bleed. Today she feels much better. She denies any chest pain or shortness of breath. She denies any fever, chills, nausea, vomiting, diarrhea, PND or orthopnea. She states that she still feels very weak and tired but has not been up out of the bed yet. Exam Data for Last 24 hours Vital signs and Labs for Last 24 Hours: Temp Pulse Resp BP Pulse Ox O2 Del Method O2 Flow Rate 97.5 F L 132 H 18 111/60 92 L Nasal Cannula 1 10/10/25 08:00 10/10/25 08:00 10/10/25 08:00 10/10/25 08:00 10/10/25 08:00 10/10/25 09:00 10/10/25 09:00 Laboratory Results - last 24 hr 10/09/25 14:34: WBC Cancelled, Corrected WBC Cancelled, RBC Cancelled, Hgb Cancelled, Hct Cancelled, MCV Cancelled, MCH Cancelled, MCHC Cancelled, RDW Cancelled, Plt Count Cancelled, MPV Cancelled, Neut % (Auto) Cancelled, Lymph % (Auto) Cancelled, [place] % (Auto) Cancelled, Eos % (Auto) Cancelled, Baso % (Auto) Cancelled, Neut # (Auto) Cancelled, Lymph # (Auto) Cancelled, [place] # (Auto) Cancelled, Eos # (Auto) Cancelled, Baso # (Auto) Cancelled, Sodium 131 L, Potassium 2.8 L*, Chloride 100, Carbon Dioxide 25, Anion Gap 8.8, BUN 9, Creatinine 0.80, Estimated Creat Clear 54, Estimated GFR 69, Est GFR ( Amer) 84, Glucose 99, Calcium 7.3 L, Total Bilirubin 0.8, AST 33, ALT 14, Alkaline Phosphatase 73, Troponin I 0.11 H, Total Protein 5.8 L, Albumin 2.6 L, Globulin 3.2, Albumin/Globulin Ratio 0.8 L 10/09/25 15:25: WBC 10.8, RBC 3.39 L, Hgb 10.0 L, Hct 28.4 L, MCV 83.8, MCH 29.5, MCHC 35.2, RDW 20.3 H, Plt Count 335, MPV 12.3 H, Neut % (Auto) 76.3, Lymph % (Auto) 14.4, [place] % (Auto) 8.1, Eos % (Auto) 0.1, Baso % (Auto) 0.0 L, Neut # (Auto) 8.2 H, Lymph # (Auto) 1.6, [place] # (Auto) 0.9, Eos # (Auto) 0.0, Baso # (Auto) 0.0, Blood Type Cancelled, Antibody Screen Cancelled 10/09/25 18:07: Troponin I 0.23 H 10/10/25 05:57: WBC 8.5, RBC 3.25 L, Hgb 9.4 L, Hct 26.8 L, MCV 82.5, MCH 28.9, MCHC 35.1, RDW 19.9 H, Plt Count 344, MPV 11.2 H, Neut % (Auto) 64.5, Lymph % (Auto) 23.8, [place] % (Auto) 9.5 H, Eos % (Auto) 0.8, Baso % (Auto) 0.1, Neut # (Auto) 5.5, Lymph # (Auto) 2.0, [place] # (Auto) 0.8, Eos # (Auto) 0.1, Baso # (Auto) 0.0, Sodium 131 L, Potassium 3.6 D, Chloride 103, Carbon Dioxide 26, Anion Gap 5.6, BUN 8, Creatinine 0.90, Estimated Creat Clear 54, Estimated GFR 61, Est GFR ( Amer) 73, Glucose 99, Calcium 7.9 L, Iron 62, TIBC 105 L, Iron Saturation 59.76210 H, Total Bilirubin 0.6, Direct Bilirubin 0.2, Conjugated Bilirubin 0.0, Indirect Bilirubin 0.4, Unconjugated Bilirubin 0.4, AST 27, ALT 17, Alkaline Phosphatase 77, Total Protein 5.0 L, Albumin 2.4 L, Triglycerides 181 H, Cholesterol 97 L, LDL Cholesterol Direct 43.22 L, VLDL Cholesterol 36, HDL Cholesterol 49, Cholesterol/HDL Ratio 2.0 I & O for Last 24 hours: Intake & Output 10/07/25 10/08/25 10/09/25 10/10/25 23:59 23:59 23:59 23:59 Intake Total 130 / 130 478 / 478 Output Total 300 / 300 Balance 130 / 130 178 / 178 Weight 162 lb 0.636 oz 162 lb 0.636 oz Constitutional Constitutional: mild distress and average body habitus *Routine HEENT Exam Head: Present normocephalic Eye: Present EOMI and PERRL ENT: Present mucous membranes moist *Routine Neck Exam Neck: Present supple; Absent lymphadenopathy *Routine Respiratory Exam Respiratory: Present decreased breath sounds *Routine Cardiovascular Exam Cardiovascular: Present RRR, Normal S1, Normal S2 and tachycardia *Routine Abdominal Exam Abdominal: Present soft and normoactive bowel sounds; Absent tenderness *Routine Extremities Exam Extremities: Absent cyanosis, clubbing or edema *Routine Skin Exam Skin: Present warm; Absent rash *Routine Neurological Exam Neurological: Present alert and oriented X3 Progress Note: A&P Assessment and plan (1) Pulmonary emboli: Status: Acute (2) Cor pulmonale, acute: Status: Acute (3) Atrial fibrillation: Status: Acute (4) Hyperlipidemia: Status: Acute (5) Hypertension: Status: Acute (6) Anemia: Status: Acute (7) GERD (gastroesophageal reflux disease): Status: Acute (8) Chronic heart failure with preserved ejection fraction (HFpEF): Status: Acute Assessment and Plan Assessment and Plan for All Diagnoses:: Plan: 1. The patient was admitted here to [facility] for massive bilateral pulmonary emboli with RV strain. The patient was taken to the Registered Nurse Supervisor and underwent mechanical thrombectomy of the right pulmonary emboli. Left pulmonary artery was not intervened on due to low HCT of 12 and 13 as reported by lab to the woods laborer during the procedure. It was decided to leave the left pulmonary artery alone because her oxygen improved after only intervening on the right pulmonary artery and her HCT was low. The patient tolerated this procedure well. She is currently on Lovenox for anticoagulation. 2. The patient is currently on Lovenox for anticoagulation. Prior to discharge home she will need to be converted over to Eliquis 10 mg twice daily for 1 week then Eliquis 5 mg twice daily thereafter. 3. The patient does have known atrial fibrillation. Her metoprolol has been restarted already. She remains a little tachycardic today. Her EF on her preliminary echocardiogram appears to be normal. Will also restart her diltiazem 60 mg 3 times daily for rate control of atrial fibrillation. 4. Her blood pressure is well-controlled. 5. Her LDL goal is less than 100. Her LDL is 43. 6. Echocardiogram shows a normal ejection fraction with mild AI, mild RV dilatation and moderate RV dysfunction. 7. The patient has known chronic HFpEF. She is currently asymptomatic. 8. The patient does have anemia. Her Eliquis had been stopped because of concerns for a GI bleed and she developed bilateral pulmonary emboli while off of her Eliquis. GI has been consulted for further evaluation of her GI bleed with plans for potential EGD/colonoscopy during this hospitalization. 9. Further recommendations will be made pending the patient's response to treatment and the results of her echocardiogram today. Thank you for the opportunity to help participate in the care of this patient. All recommendations and orders are per Dr. Zuñiga.
--- NOTE | 2025-10-10 10:13 | SW/DCPLANNER ---
Addendum entered by [facility] 10/12/25 07:42: I have notified Ariadne vargas/ [facility] that patient will discharge today. I will also call and update patients son. Addendum entered by [facility] 10/11/25 11:30: I have updated patient's son regarding [facility] and possible discharge later today or tomorrow. Addendum entered by [facility] 10/11/25 10:52: I have updated Ariadne / [facility] that patient may discharge later today or tomorrow morning. I will continue to try to get in contact w/ son. Addendum entered by [facility] 10/11/25 07:59: I attempted to update son that [facility] does not have any beds open. Merged with [facility]/ [facility] has accept patient and insurance has approved patient. I will continue to try to get in contact w/ patient's son. Addendum entered by Madonna Cruz RN 10/10/25 15:41: Patient's son came to visit patient and we spoke about patient going to rehab. He states that she recently was at [facility]. I contacted them and they currently didn't have a bed available, but stated to check back in the morning. The second option the son gave was [facility]. Ariadne states she does have a bed available so sent the information to her. Son's phone numbers: [phone] or [phone] Addendum entered by Leyla Oakland 10/10/25 12:36: I attempted to contact patient's son again this afternoon: no answer at this time. Original Note: I spoke w/ patient regarding plans once medically stable for discharge. PT/OT evaluated patient and recommended SNF level of care. Patient stated that she prefer I call and speak w/ her son (Pablo) regarding discharge planning. I attempted to contact Pablo w/ no answer VM left. CM will continue to follow up. Discharge date is unknown at this time.
[2025-10-10 10:30] LABS: Ferritin 862 ng/ml (11.1-264)
--- NOTE | 2025-10-10 10:33 | PC.NURSE ---
Called Dr Green about patient heart rate still being in the 120's to 130s after receiving her morning dose of metoprolol succinate and also diltizem. He wants to hold off on giving anything else at this time to try and give the medicines some time to work.
--- NOTE | 2025-10-10 11:47 | P.PN_ITS ---
Subjective *Date: 10/10/25 *Time: 16:55 Interval history: Patient feeling better today. Shortness of breath improving. On 1 L oxygen. Heart rate still elevated at 120s this morning. Remain in A-fib. No chest pain, nausea, vomiting. No bowel movement. No active signs of bleeding. Alert and oriented x 3 Medical Exam Vital signs and Labs for Last 24 Hours: Vital Signs Temp Pulse Pulse Resp BP BP Pulse Ox 10/10/25 11:00 10/10/25 10:00 120 H 16 111/70 91 L 10/10/25 09:00 10/10/25 08:00 132 H 92 L 10/10/25 08:00 132 H 10/10/25 08:00 97.5 F L 129 H 18 111/60 93 L 10/10/25 07:00 118 H 18 111/67 92 L 10/10/25 06:45 10/10/25 06:00 125 H 18 109/68 L 94 L 10/10/25 05:00 115 H 17 112/70 92 L 10/10/25 05:00 10/10/25 04:00 92 L 10/10/25 04:00 113 H 10/10/25 04:00 98.3 F 110 H 19 113/73 93 L 10/10/25 03:00 126 H 16 102/64 L 94 L 10/10/25 03:00 10/10/25 02:00 128 H 17 106/80 L 93 L 10/10/25 01:00 124 H 17 108/65 L 91 L 10/10/25 01:00 10/10/25 00:00 91 L 10/10/25 00:00 123 H 10/10/25 00:00 98.7 F 113 H 20 118/71 94 L 10/09/25 23:00 118 H 21 103/69 L 95 10/09/25 23:00 10/09/25 22:00 105 H 15 106/70 L 92 L 10/09/25 21:00 112 H 15 109/61 L 92 L 10/09/25 21:00 10/09/25 20:00 98.5 F 87 15 91/51 L 95 10/09/25 20:00 97 10/09/25 20:00 124 H 10/09/25 19:00 110 H 13 101/55 L 91 L 10/09/25 19:00 10/09/25 18:41 98.0 F 10/09/25 18:30 119 H 20 106/60 L 93 L 10/09/25 18:15 118 H 10/09/25 18:00 113 H 19 107/61 L 92 L 10/09/25 18:00 104 H 19 107/61 L 94 L 10/09/25 17:30 108 H 16 116/70 92 L 10/09/25 17:00 115 H 18 104/71 L 94 L 10/09/25 17:00 117 H 19 104/71 L 94 L 10/09/25 17:00 10/09/25 16:30 119 H 20 115/64 91 L 10/09/25 16:15 121 H 20 114/69 92 L 10/09/25 16:00 123 H 21 112/67 92 L 10/09/25 16:00 98.0 F 118 H 21 112/67 92 L 10/09/25 15:47 126 H 15 120/71 88 L 10/09/25 15:45 116 H 21 120/71 98 10/09/25 15:30 117 H 20 10/09/25 15:25 115 H 20 142/71 H 97 10/09/25 15:20 121 H 20 95/37 L 99 10/09/25 15:20 121 H 121 H 20 95/37 L 99 10/09/25 15:15 116 H 20 107/69 L 97 10/09/25 14:05 122 H 95 O2 Del Method O2 Flow Rate 10/10/25 11:00 Room Air 10/10/25 10:00 Nasal Cannula 1 10/10/25 09:00 Nasal Cannula 1 10/10/25 08:00 Nasal Cannula 1 10/10/25 08:00 10/10/25 08:00 Nasal Cannula 1 10/10/25 07:00 Nasal Cannula 1 10/10/25 06:45 Nasal Cannula 1 10/10/25 06:00 Nasal Cannula 1 10/10/25 05:00 Nasal Cannula 1 10/10/25 05:00 Nasal Cannula 1 10/10/25 04:00 Nasal Cannula 1 10/10/25 04:00 10/10/25 04:00 Nasal Cannula 1 10/10/25 03:00 Nasal Cannula 1 10/10/25 03:00 Nasal Cannula 1 10/10/25 02:00 Nasal Cannula 1 10/10/25 01:00 Nasal Cannula 1 10/10/25 01:00 Nasal Cannula 1 10/10/25 00:00 Room Air 10/10/25 00:00 10/10/25 00:00 Nasal Cannula 1 10/09/25 23:00 Nasal Cannula 1 10/09/25 23:00 Nasal Cannula 1 10/09/25 22:00 Nasal Cannula 1 10/09/25 21:00 Nasal Cannula 1 10/09/25 21:00 Room Air 10/09/25 20:00 Nasal Cannula 1 10/09/25 20:00 Room Air 10/09/25 20:00 10/09/25 19:00 Nasal Cannula 1 10/09/25 19:00 Nasal Cannula 1 10/09/25 18:41 10/09/25 18:30 Nasal Cannula 1 10/09/25 18:15 10/09/25 18:00 Nasal Cannula 1 10/09/25 18:00 Nasal Cannula 1 10/09/25 17:30 Nasal Cannula 1 10/09/25 17:00 Nasal Cannula 1 10/09/25 17:00 Nasal Cannula 2 10/09/25 17:00 Nasal Cannula 1 10/09/25 16:30 Nasal Cannula 2 10/09/25 16:15 Nasal Cannula 2 10/09/25 16:00 Nasal Cannula 2 10/09/25 16:00 Nasal Cannula 2 10/09/25 15:47 Nasal Cannula 2 10/09/25 15:45 Nasal Cannula 6 10/09/25 15:30 10/09/25 15:25 Simple Mask 6 10/09/25 15:20 Simple Mask 6 10/09/25 15:20 Simple Mask 6 10/09/25 15:15 Simple Mask 6 10/09/25 14:05 Nasal Cannula 8 Intake and Output 10/09/25 10/10/25 10/10/25 23:59 07:59 15:59 Intake Total 130 / 130 478 / 478 Output Total 300 / 300 Balance 130 / 130 -300 / 178 478 / 178 Intake: Intake, Oral Amount 80 / 80 478 / 478 Intake, Total IV Amount 50 / 50 Calcium Gluc in NaCl, Iso-Osm 1 50 / 50 gm In 50 ml @ 50 mls/hr IV ONCE ONE Rx#:[id number] Output: Output, Urine Amount 300 / 300 Other: Number of Unmeasured Voids 1 Number of Urine Attends/Diapers 1 Number of Bowel Movements 1 Weight 73.5 kg Patient Weight 10/10/25 23:59 Weight 73.5 kg Laboratory Results - last 24 hr 10/09/25 14:34: WBC Cancelled, Corrected WBC Cancelled, RBC Cancelled, Hgb Cancelled, Hct Cancelled, MCV Cancelled, MCH Cancelled, MCHC Cancelled, RDW Cancelled, Plt Count Cancelled, MPV Cancelled, Neut % (Auto) Cancelled, Lymph % (Auto) Cancelled, [place] % (Auto) Cancelled, Eos % (Auto) Cancelled, Baso % (Auto) Cancelled, Neut # (Auto) Cancelled, Lymph # (Auto) Cancelled, [place] # (Auto) Cancelled, Eos # (Auto) Cancelled, Baso # (Auto) Cancelled, Sodium 131 L, Potassium 2.8 L*, Chloride 100, Carbon Dioxide 25, Anion Gap 8.8, BUN 9, Creatinine 0.80, Estimated Creat Clear 54, Estimated GFR 69, Est GFR ( Amer) 84, Glucose 99, Calcium 7.3 L, Total Bilirubin 0.8, AST 33, ALT 14, A lkaline Phosphatase 73, Troponin I 0.11 H, Total Protein 5.8 L, Albumin 2.6 L, Globulin 3.2, Albumin/Globulin Ratio 0.8 L 10/09/25 15:25: WBC 10.8, RBC 3.39 L, Hgb 10.0 L, Hct 28.4 L, MCV 83.8, MCH 29.5, MCHC 35.2, RDW 20.3 H, Plt Count 335, MPV 12.3 H, Neut % (Auto) 76.3, Lymph % (Auto) 14.4, [place] % (Auto) 8.1, Eos % (Auto) 0.1, Baso % (Auto) 0.0 L, Neut # (Auto) 8.2 H, Lymph # (Auto) 1.6, [place] # (Auto) 0.9, Eos # (Auto) 0.0, Baso # (Auto) 0.0, Blood Type Cancelled, Antibody Screen Cancelled 10/09/25 18:07: Troponin I 0.23 H 10/10/25 05:57: WBC 8.5, RBC 3.25 L, Hgb 9.4 L, Hct 26.8 L, MCV 82.5, MCH 28.9, MCHC 35.1, RDW 19.9 H, Plt Count 344, MPV 11.2 H, Neut % (Auto) 64.5, Lymph % (Auto) 23.8, [place] % (Auto) 9.5 H, Eos % (Auto) 0.8, Baso % (Auto) 0.1, Neut # (Auto) 5.5, Lymph # (Auto) 2.0, [place] # (Auto) 0.8, Eos # (Auto) 0.1, Baso # (Auto) 0.0, Sodium 131 L, Potassium 3.6 D, Chloride 103, Carbon Dioxide 26, Anion Gap 5.6, BUN 8, Creatinine 0.90, Estimated Creat Clear 54, Estimated GFR 61, Est GFR ( Amer) 73, Glucose 99, Calcium 7.9 L, Iron 62, TIBC 105 L, Iron Saturation 59.90246 H, Ferritin 862 H, Total Bilirubin 0.6, Direct Bilirubin 0.2, Conjugated Bilirubin 0.0, Indirect Bilirubin 0.4, Unconjugated Bilirubin 0.4, AST 27, ALT 17, Alkaline Phosphatase 77, Total Protein 5.0 L, Albumin 2.4 L, Triglycerides 181 H, Cholesterol 97 L, LDL Cholesterol Direct 43.22 L, VLDL Cholesterol 36, HDL Cholesterol 49, Cholesterol/HDL Ratio 2.0 I & O for Labs for Last 24 Hours: Intake & Output 10/07/25 10/08/25 10/09/25 10/10/25 23:59 23:59 23:59 23:59 Intake Total 130 / 130 478 / 478 Output Total 300 / 300 Balance 130 / 130 178 / 178 Weight 73.5 kg 73.5 kg Constitutional: Present no acute distress, obese, chronically ill appearing and cooperative Respiratory: Present normal respiratory effort; Absent rhonchi, wheezes or crackles Cardiac: Present Irregularly Regular and Tachycardia GI: Present soft and normal bowel sounds; Absent distention or tenderness Extremities: Present normal inspection and full ROM Skin: Present intact; Absent erythema Neuro: Present Grossly Intact, alert, awake, oriented x 3 and moves all extremities Assessment and Plan *Assessment and plan (1) Pulmonary emboli: Status: Acute Qualifiers: Acute cor pulmonale presence: with acute cor pulmonale Chronicity: acute Pulmonary embolism type: saddle Qualified Code(s): I26.02 - Saddle embolus of pulmonary artery with acute cor pulmonale Category: Medical Code(s): I26.99 - Other pulmonary embolism without acute cor pulmonale (2) Cor pulmonale, acute: Status: Acute Category: Medical Code(s): I26.09 - Other pulmonary embolism with acute cor pulmonale (3) GERD (gastroesophageal reflux disease): Status: Acute Qualifiers: Esophagitis presence: esophagitis presence not specified Qualified Code(s): K21.9 - Gastro-esophageal reflux disease without esophagitis Category: Medical Code(s): K21.9 - Gastro-esophageal reflux disease without esophagitis (4) Hypertension: Status: Acute Qualifiers: Hypertension type: primary hypertension Qualified Code(s): I10 - Essential (primary) hypertension Category: Medical Code(s): I10 - Essential (primary) hypertension (5) Hyperlipidemia: Status: Acute Qualifiers: Hyperlipidemia type: mixed hyperlipidemia Qualified Code(s): E78.2 - Mixed hyperlipidemia Category: Medical Code(s): E78.5 - Hyperlipidemia, unspecified (6) Atrial fibrillation: Status: Acute Qualifiers: Atrial fibrillation type: unspecified chronic Qualified Code(s): I48.20 - Chronic atrial fibrillation, unspecified Category: Medical Code(s): I48.91 - Unspecified atrial fibrillation (7) Anemia: Status: Acute Category: Medical Code(s): D64.9 - Anemia, unspecified (8) Hypokalemia: Status: Acute Category: Medical Code(s): E87.6 - Hypokalemia Plan 80-year-old female who presented as transfer from [facility] due to concern for cor pulmonale and submassive PE. Found to have right heart strain on CT with elevated troponin. Discussed case with assistant project engineer, recommends transfer and acceptance for thrombectomy. I decided to admit for further care. Taken urgently to the Flight Technician on arrival. Successful thrombectomy of right pulmonary vasculature performed. Had improvement in oxygenation. Admitted to ICU for further management. Showing improvement overnight. Oxygen weaning down. De- escalate to stepdown level of care. GI to evaluate for possible etiology of blood loss. Problems addressed as follows: Pulmonary emboli Cor pulmonale Atrial fibrillation - Stable overnight. Weaning oxygen. Goal sats greater 90%, currently on 1 L - Remains in A-fib. Resuming metoprolol succinate 50 mg daily. Will also resume diltiazem 60 mg 3 times a day. Goal heart rate less than 100 - Successful thrombectomy performed 10/09. Continue Lovenox 1 mg/kg twice daily. Will consider oral anticoagulation tomorrow after EGD with Eliquis - Formal echo obtained, read pending. Appears to show preserved EF on preliminary read - Repeat CBC, CMP, magnesium ordered for the morning. Depression: Continue Zoloft 25 mg daily Suspected GI bleed Anemia - Previously held anticoagulation due to suspected GI bleed. Have consulted GI to evaluate for possible scope although patient does not have active bleeding at this time. Hemoglobin stable at 9.4. White count 8.5. BUN 8, creatinine 0.9. No signs of upper GI bleed at this time. BUN normal. Transfusion threshold hemoglobin less than 7 -Discussed case with GI, planning on EGD and colonoscopy today. Further management pending findings. - Continue pantoprazole 40 mg IV twice daily - N.p.o. until after scope Full code Therapeutic Lovenox
--- NOTE | 2025-10-10 13:39 | SW/DCPLANNER ---
Patient has [facility]. Bud Hong
--- NOTE | 2025-10-10 14:14 | PC.NURSE ---
Patient has not had any output since the 0700. Patient will be bladder scanned
--- NOTE | 2025-10-10 14:32 | PC.NURSE ---
Preop came up to get patient for EGD. Confirmed with scope team that scope was happening still due to patient heart rate still being elevated and patient had something to drink with medications. Patient still okay to go down. Consent obtained. Patient with preop staff at this time
--- NOTE | 2025-10-10 15:21 | HMH.PROCNOTE ---
[facility] Procedure Note Date: 10/10/25 Time: 15:29 Procedure Note:: Upper Endoscopy Procedure Report: Esophagogastroduodenoscopy with cold biopsies Endoscopost: Dakotah Martel II, MD Referring Physician: Jus Green MD Date of Procedure: October 10, 2025 Equipment: Olympus GIF-1100 standard upper endoscope Sedation: MAC sedation Indications: Mrs. Mancilla is a 80-year-old female who is here for diagnostic upper endoscopy. There is concern for possible GI bleeding because of iron deficiency and risk with anticoagulation. She was admitted with pulmonary embolus. She does have a history of atrial fibrillation and a remote history of blood clots. Her anticoagulation was discontinued over the last 3 weeks because of concern for GI bleed and she was awaiting EGD and colonoscopy which was scheduled in [facility] within the next week. She became weak with dyspnea at the nursing facility and was brought to the ED. She had CT pulmonary embolus protocol and was found to have pulmonary emboli. Cardiology accepted the patient and she went to the Admissions Clerk where she had prompt thrombectomy with multiple pulmonary emboli in the right pulmonary artery. Now, she has been off of Eliquis for 10 to 14 days and there is still concern for GI bleed. The patient's hemoglobin and hematocrit were 10.0 and 28.4 on admission. Her MCV was 83.8. The patient reports no abdominal pain, change in her bowel habits, melena, hematochezia or bright red blood per rectum. She did have a colonoscopy several years ago. Procedure: Prior to the procedure, a history and physical exam was performed, and patient's medications and allergies were reviewed. The risks, benefits and alternatives of the sedation and procedure were discussed with the patient. All questions were answered and informed consent was obtained. The patient was brought to the procedure room. Patient identification and proposed procedure were verified by the physician and the nurse. The patient was placed in a left lateral decubitus position and the scope was passed under direct vision. Throughout the procedure, the patient's blood pressure, pulse, and oxygen saturations were monitored continuously. The upper GI endoscopy was accomplished without difficulty. The patient tolerated the procedure well. Findings: The scope was passed directly into the upper esophagus and advanced to the third portion of the duodenum. The post bulbar duodenum and duodenal bulb were normal with normal mucosa and conniventes. There was no scalloping of the conniventes. There were no angiodysplasias or duodenal ulcers. There was no peptic duodenitis. The scope was withdrawn through a normal duodenal bulb and pylorus into the stomach. There was some bile reflux. There was also evidence of reticular/mosaic pattern of the proximal stomach consistent with mild chronic gastritis. Cold biopsies were taken along the lesser curvature to rule out H. pylori. Upon retroflexion there was no hiatal hernia. There were no gastric varices, gastric ulcers or gastric AVMs/angiodysplasias. The scope was then withdrawn into the esophagus. There was no evidence of reflux esophagitis or esophageal varices and the remainder of the esophageal mucosa was normal. Impression: 1. Mild chronic gastritis Plan: I will follow-up the biopsies to rule out H. pylori. The patient's iron studies today showed serum iron 62 with iron saturation of 59% and ferritin level of 862 (acute phase reactant). The patient does not have iron deficiency. I will check Hemoccult testing. If the patient is Hemoccult positive, I would consider diagnostic colonoscopy.
--- NOTE | 2025-10-10 15:23 | P.PNANES_ITS ---
[facility] Disclaimer: The information contained in this section may have been updated after the patient was seen, as this information can be updated by other users. Medical History (Updated 10/10/25 @ 10:14 by Radha Ruiz APRN) Chronic heart failure with preserved ejection fraction (HFpEF) Hemolytic anemia Kidney stones Hypertension Hyperlipidemia GERD (gastroesophageal reflux disease) Atrial fibrillation Arthritis Surgical History History of splenectomy History of lumpectomy Hx of tonsillectomy Hx of appendectomy Family History Father TIA (transient ischemic attack) Stroke Hypertension Social History Smoking Status: Never smoker alcohol intake: never substance use type: denies use current occupational status: retired Travel in the last 8 weeks?: None [facility] Anesthesia Checklist Patient Identification Patient Identification: Arm Band and Verbal (Name & ) Structural Data Admitted From: Home Planned Operative Procedure/s: EGD Consent for Planned Operative Procedure(s) Verified: Yes Verified Documents: Surgical Consent NPO Status Verified Time NPO: 00:00 Chart Verification Results Verified: CBC and BMP Additional verifications Anesthesia Reactions: No Airway Assessment Mallampati Score:: Class II C-Spine Mobility Assessed: Yes TMJ Mobility Assessed: Yes Dentition: Good Dentition Neurological Assessment Level of Consciousness: Awake, Alert and Appropriate Hx Seizures: No Numbness or tingling in extremities: No Anesthesia Plan Anesthesia Risk discussed: Yes Anesthesia Plan: Verified ASA Class: III Anesthesia Type: MAC
--- NOTE | 2025-10-10 16:22 | PC.NURSE ---
Patient was bladder scanned due to patient not having any output today. There is only 145ml of fluid in the patients bladder. Patient came up from getting EGD with a bag of fluids going, will continue the fluids
[2025-10-10 18:49] LABS: Occult Blood,Stool Negative (Negative)
[2025-10-11] VITALS (8 sets, daily range): BP systolic 103–127; BP diastolic 60–73; PULSE 100–125; RESP 16–22; TEMP 36.4–36.6; O2SAT 91–95; BMI 29.6
[2025-10-11 06:14] LABS: Anion Gap 6.1 mEq/L (5-15); Blood Urea Nitrogen 8 mg/dl (7-17); Calcium 7.8 mg/dl (8.4-10.2); Carbon Dioxide 25 mmol/L (22.0-30.0); Chloride 103 mmol/L (98-107); Creatinine Clearance Estimated 54 mL/min (50-200); Creatinine,Serum 0.80 mg/dl (0.52-1.04); Estimated Glomerular Filt Rate 69 ml/min (>60); GFR (African American) 84 ML/MIN (>60); Glucose 88 mg/dl (74-100); Potassium 4.1 mmoL/L (3.5-5.1); Sodium 130 mmol/L (136-145)
--- NOTE | 2025-10-11 07:16 | EXP.PN ---
Subjective *Date: 10/11/25 *Time: 07:16 Interval history: Patient awake and alert with no abdominal complaints. Exam Data for Last 24 hours Vital signs and Labs for Last 24 Hours: Temp Pulse Resp BP Pulse Ox O2 Del Method O2 Flow Rate 97.5 F L 122 H 16 127/71 91 L Room Air 91 10/11/25 04:00 10/11/25 04:00 10/11/25 04:00 10/11/25 04:00 10/11/25 04:00 10/11/25 06:41 10/11/25 01:00 Laboratory Results - last 24 hr 10/10/25 05:57: Iron 62, TIBC 105 L, Iron Saturation 59.63628 H, Ferritin 862 H 10/10/25 18:35: Stool Occult Blood Negative 10/11/25 05:22: Sodium 130 L, Potassium 4.1, Chloride 103, Carbon Dioxide 25, Anion Gap 6.1, BUN 8, Creatinine 0.80, Estimated Creat Clear 54, Estimated GFR 69, Est GFR ( Amer) 84, Glucose 88, Calcium 7.8 L I & O for Last 24 hours: Intake & Output 10/08/25 10/09/25 10/10/25 10/11/25 23:59 23:59 23:59 23:59 Intake Total 130 / 130 1308 / 1308 Output Total 500 / 500 Balance 130 / 130 808 / 808 Weight 162 lb 0.636 oz 162 lb 0.636 oz 161 lb 2.526 oz Constitutional Constitutional: no acute distress *Routine HEENT Exam Head: Present normocephalic Eye: Present EOMI and PERRL ENT: Present mucous membranes moist *Routine Neck Exam Neck: Present supple; Absent lymphadenopathy *Routine Respiratory Exam Respiratory: Present CTA bilaterally *Routine Cardiovascular Exam Cardiovascular: Present RRR *Routine Abdominal Exam Abdominal: Present soft and normoactive bowel sounds; Absent tenderness *Routine Extremities Exam Extremities: Absent cyanosis, clubbing or edema *Routine Skin Exam Skin: Present warm; Absent rash *Routine Neurological Exam Neurological: Present alert and oriented X3 Assessment and Plan *Assessment and plan (1) Anemia: Status: Acute Category: Medical Code(s): D64.9 - Anemia, unspecified Plan 1. Anemia. The patient is Hemoccult negative and iron studies did not show iron deficiency anemia. EGD yesterday showed some chronic gastritis but no signs of bleeding. At this point, I would not recommend diagnostic colonoscopy at the present time and I do feel that the patient can now safely continue anticoagulation.
[2025-10-11 07:36] LABS: Hematocrit 27.3 % (37.0-47.0); Hemoglobin 9.3 g/dL (12.2-16.2); Immature Granulocytes % 1.8 %; Mean Corpuscular HGB Conc 34.1 g/dL (31.8-35.4); Mean Corpuscular Hemoglobin 28.4 pg (27.0-31.2); Mean Corpuscular Volume 83.5 fl (81-99); Nucleated Red Blood Cells % 3.3 %; Platelet Count 388 K/mm3 (142-424); Red Blood Count 3.27 M/mm3 (4.20-5.40); Red Cell Distribution Width-SD 58.0 fL; White Blood Count 8.9 K/mm3 (4.8-10.8)
[2025-10-11] MEDS: METOPROLOL SUCCINATE XL 100MG TABLET 100 MG PO ×2 (08:30→20:50)
[2025-10-11] MEDS: PANTOPRAZOLE 40MG VIAL 40 MG IV ×2 (08:31→20:50)
[2025-10-11] MEDS: SERTRALINE 50MG TABLET 25 MG PO (08:31)
[2025-10-11] MEDS: SODIUM CHLORIDE 0.9% 10ML VIAL 10 ML IV ×2 (08:31→20:50)
--- NOTE | 2025-10-11 11:29 | P.PN_ITS ---
Subjective *Date: 10/11/25 *Time: 11:29 Interval history: Patient states she feels somewhat better today. Still tachycardic on telemetry with heart rate in the 120s. Denies chest pain, nausea, vomiting. Stable on room air. Tolerating p.o. intake. Appears at baseline mentation. Oriented to self Medical Exam Vital signs and Labs for Last 24 Hours: Vital Signs Temp Pulse Pulse Resp BP BP Pulse Ox 10/11/25 08:00 125 H 10/11/25 08:00 97.9 F 124 H 16 126/71 94 L 10/11/25 07:30 123 H 93 L 10/11/25 06:41 10/11/25 05:00 10/11/25 04:00 122 H 10/11/25 04:00 97.5 F L 115 H 16 127/71 91 L 10/11/25 03:00 10/11/25 01:00 10/11/25 00:00 118 H 10/11/25 00:00 97.7 F 125 H 18 114/66 91 L 10/10/25 23:00 10/10/25 21:00 10/10/25 20:30 121 H 18 122/69 90 L 10/10/25 20:15 128 H 15 115/71 91 L 10/10/25 20:00 118 H 19 124/71 90 L 10/10/25 20:00 92 L 10/10/25 20:00 115 H 10/10/25 19:45 113 H 17 111/69 90 L 10/10/25 19:30 114 H 16 111/69 90 L 10/10/25 19:15 98.1 F 118 H 20 111/66 90 L 10/10/25 19:00 116 H 18 112/61 90 L 10/10/25 18:55 10/10/25 18:15 137 H 25 H 101/63 L 90 L 10/10/25 18:00 120 H 14 114/84 93 L 10/10/25 17:45 110 H 19 112/63 91 L 10/10/25 17:00 112 H 20 114/62 90 L 10/10/25 17:00 10/10/25 16:45 117 H 16 108/66 L 91 L 10/10/25 16:30 120 H 16 99/80 L 91 L 10/10/25 16:13 98.0 F 119 H 19 112/73 91 L 10/10/25 16:00 120 H 10/10/25 15:52 109 H 107/65 L 94 L 10/10/25 15:42 118 H 107/53 L 93 L 10/10/25 15:32 97.8 F 120 H 20 93/56 L 92 L 10/10/25 14:30 119 H 18 110/70 90 L 10/10/25 14:00 127 H 93 L 10/10/25 14:00 128 H 18 102/69 L 94 L 10/10/25 13:00 10/10/25 12:00 119 H 19 111/70 91 L 10/10/25 12:00 124 H O2 Del Method O2 Flow Rate 10/11/25 08:00 10/11/25 08:00 Room Air 10/11/25 07:30 Room Air 10/11/25 06:41 Room Air 10/11/25 05:00 Room Air 10/11/25 04:00 10/11/25 04:00 10/11/25 03:00 Room Air 10/11/25 01:00 Room Air 91 10/11/25 00:00 10/11/25 00:00 10/10/25 23:00 Room Air 10/10/25 21:00 Nasal Cannula 3 10/10/25 20:30 10/10/25 20:15 10/10/25 20:00 10/10/25 20:00 Room Air 10/10/25 20:00 10/10/25 19:45 10/10/25 19:30 10/10/25 19:15 Room Air 10/10/25 19:00 10/10/25 18:55 Room Air 10/10/25 18:15 Room Air 10/10/25 18:00 Room Air 10/10/25 17:45 Room Air 10/10/25 17:00 Room Air 10/10/25 17:00 Room Air 10/10/25 16:45 Room Air 10/10/25 16:30 Room Air 10/10/25 16:13 Room Air 10/10/25 16:00 10/10/25 15:52 Room Air 10/10/25 15:42 Room Air 10/10/25 15:32 Room Air 10/10/25 14:30 Nasal Cannula 1 10/10/25 14:00 Room Air 10/10/25 14:00 Nasal Cannula 1 10/10/25 13:00 Room Air 10/10/25 12:00 Nasal Cannula 1 10/10/25 12:00 Intake and Output 10/10/25 10/11/25 10/11/25 23:59 07:59 15:59 Intake Total 830 / 1308 100 / 100 Output Total 200 / 500 Balance 630 / 808 100 / 100 Intake: Intake, Oral Amount 330 / 808 100 / 100 Intake, Total IV Amount 500 / 500 0.9 % Sodium Chloride 500 ml @ 500 / 500 25 mls/hr IV .Q20H [facility] Rx#: [id number] Output: Output, Urine Amount 200 / 500 Other: Number of Unmeasured Voids 1 Number of Urine Attends/Diapers 1 Weight 73.1 kg Patient Weight 10/11/25 23:59 Weight 73.1 kg Laboratory Results - last 24 hr 10/10/25 18:35: Stool Occult Blood Negative 10/11/25 05:22: Sodium 130 L, Potassium 4.1, Chloride 103, Carbon Dioxide 25, Anion Gap 6.1, BUN 8, Creatinine 0.80, Estimated Creat Clear 54, Estimated GFR 69, Est GFR ( Amer) 84, Glucose 88, Calcium 7.8 L 10/11/25 07:21: WBC 8.9, RBC 3.27 L, Hgb 9.3 L, Hct 27.3 L, MCV 83.5, MCH 28.4, MCHC 34.1, RDW 20.5 H, Plt Count 388, MPV 11.1 H, Neut % (Auto) 57.8, Lymph % (Auto) 28.1, [place] % (Auto) 10.2 H, Eos % (Auto) 2.0, Baso % (Auto) 0.1, Neut # (Auto) 5.2, Lymph # (Auto) 2.5, [place] # (Auto) 0.9, Eos # (Auto) 0.2, Baso # (Auto) 0.0 I & O for Labs for Last 24 Hours: Intake & Output 10/08/25 10/09/25 10/10/25 10/11/25 23:59 23:59 23:59 23:59 Intake Total 130 / 130 1308 / 1308 100 / 100 Output Total 500 / 500 Balance 130 / 130 808 / 808 100 / 100 Weight 73.5 kg 73.5 kg 73.1 kg Microbiology Reports for the Last 24 Hours: Microbiology 10/09/25 21:00 Rectum CRE Surveillance Culture - Final Negative Constitutional: Present no acute distress, obese, chronically ill appearing and cooperative Respiratory: Present normal respiratory effort; Absent rhonchi, wheezes or crackles Cardiac: Present Irregularly Regular and Tachycardia GI: Present soft and normal bowel sounds; Absent distention or tenderness Extremities: Present normal inspection and full ROM Skin: Present intact; Absent erythema Neuro: Present Grossly Intact, alert, awake, oriented x 3 and moves all extremities Assessment and Plan *Assessment and plan (1) Pulmonary emboli: Status: Acute Qualifiers: Pulmonary embolism type: saddle Chronicity: acute Acute cor pulmonale presence: with acute cor pulmonale Qualified Code(s): I26.02 - Saddle embolus of pulmonary artery with acute cor pulmonale Category: Medical Code(s): I26.99 - Other pulmonary embolism without acute cor pulmonale (2) Cor pulmonale, acute: Status: Acute Category: Medical Code(s): I26.09 - Other pulmonary embolism with acute cor pulmonale (3) GERD (gastroesophageal reflux disease): Status: Acute Qualifiers: Esophagitis presence: esophagitis presence not specified Qualified Code(s): K21.9 - Gastro-esophageal reflux disease without esophagitis Category: Medical Code(s): K21.9 - Gastro-esophageal reflux disease without esophagitis (4) Hypertension: Status: Acute Qualifiers: Hypertension type: primary hypertension Qualified Code(s): I10 - Essential (primary) hypertension Category: Medical Code(s): I10 - Essential (primary) hypertension (5) Hyperlipidemia: Status: Acute Qualifiers: Hyperlipidemia type: mixed hyperlipidemia Qualified Code(s): E78.2 - Mixed hyperlipidemia Category: Medical Code(s): E78.5 - Hyperlipidemia, unspecified (6) Atrial fibrillation: Status: Acute Qualifiers: Atrial fibrillation type: unspecified chronic Qualified Code(s): I48.20 - Chronic atrial fibrillation, unspecified Category: Medical Code(s): I48.91 - Unspecified atrial fibrillation (7) Anemia: Status: Acute Category: Medical Code(s): D64.9 - Anemia, unspecified (8) Hypokalemia: Status: Acute Category: Medical Code(s): E87.6 - Hypokalemia (9) Chronic gastritis: Status: Acute Category: Medical Code(s): K29.50 - Unspecified chronic gastritis without bleeding Plan 80-year-old female who presented as transfer from [facility] due to concern for cor pulmonale and submassive PE. Found to have right heart strain on CT with elevated troponin. Discussed case with keg washer, recommends transfer and acceptance for thrombectomy. I decided to admit for further care. Taken urgently to the Guidance And Control System Engineer on arrival. Successful thrombectomy of right pulmonary vasculature performed. Had improvement in oxygenation. Admitted to ICU for further management. Has continued to show improvement. Will de-escalate to MedSurg today. Weaned to room air. Adjusting regimen for rate control. Will transition to oral anticoagulation today. GI evaluated yesterday with EGD, has some chronic gastritis but no significant or active bleeding. Anticipate discharge in the next day or 2. Problems addressed as follows: Pulmonary emboli Cor pulmonale Atrial fibrillation - Stable overnight. Weaning oxygen. Goal sats greater 90%, currently on room air - Remains in A-fib. Increase metoprolol succinate to 100 mg daily. Continue diltiazem 60 mg 3 times a day. Goal heart rate less than 100 - Successful thrombectomy performed 10/09. Transition to Eliquis treatment dose for PE. Will need 10 mg twice daily for 7 days followed by 5 mg twice daily thereafter. - Formal echo obtained, read pending. Appears to show preserved EF on p reliminary read - Repeat CBC, CMP, magnesium ordered for the morning. Depression: Continue Zoloft 25 mg daily Suspected GI bleed Anemia GERD with gastritis - Previously held anticoagulation due to suspected GI bleed. Have consulted GI to evaluate for possible scope although patient does not have active bleeding at this time. Hemoglobin stable at 9.3. Transfusion threshold hemoglobin less than 7 -Discussed case with GI, taken for EGD. Found to have chronic gastritis. Continue pantoprazole 40 mg IV twice daily. - Iron studies normal. Full code Eliquis
--- NOTE | 2025-10-11 12:05 | P.PN_ITS ---
Subjective Subjective Date: 10/11/25 Time: 10:00 Principal diagnosis: Bilateral PEs, atrial fibrillation with RVR Interval history: This is a 80-year-old white female who presented to [facility] with weakness and fatigue. The patient was found to have massive bilateral pulmonary emboli with RV strain. She was then transferred here to [facility] and underwent thrombectomy yesterday for the massive bilateral pulmonary emboli. The patient was taken to the Structural Steel Ironworker and underwent mechanical thrombectomy of the right pulmonary emboli. Left pulmonary artery was not intervened on due to low HCT reported by lab. She did tolerate the procedure well. The patient's long-term anticoagulation had been stopped because she had been having persistent diarrhea for the last 4 to 5 weeks and there was concern for a GI bleed. The patient developed these pulmonary emboli while off of her anticoagulation. The patient will have to be on anticoagulation at this time due to the bilateral PEs. Patient underwent EGD yesterday with GI and was found to have mild chronic gastritis with no evidence of bleeding. Her Hemoccult was negative for blood and her iron studies show that she is not iron deficiency. No colonoscopy is indicated at this time. Today she denies any chest pain or shortness of breath. She denies any edema. She denies any fever, chills, nausea, vomiting, diarrhea, PND or orthopnea. Patient remains in atrial fibrillation with RVR this morning. Exam Data for Last 24 hours Vital signs and Labs for Last 24 Hours: Temp Pulse Resp BP Pulse Ox O2 Del Method O2 Flow Rate 97.9 F 125 H 16 126/71 94 L Room Air 91 10/11/25 08:00 10/11/25 08:00 10/11/25 08:00 10/11/25 08:00 10/11/25 08:00 10/11/25 08:00 10/11/25 01:00 Laboratory Results - last 24 hr 10/10/25 18:35: Stool Occult Blood Negative 10/11/25 05:22: Sodium 130 L, Potassium 4.1, Chloride 103, Carbon Dioxide 25, Anion Gap 6.1, BUN 8, Creatinine 0.80, Estimated Creat Clear 54, Estimated GFR 69, Est GFR ( Amer) 84, Glucose 88, Calcium 7.8 L 10/11/25 07:21: WBC 8.9, RBC 3.27 L, Hgb 9.3 L, Hct 27.3 L, MCV 83.5, MCH 28.4, MCHC 34.1, RDW 20.5 H, Plt Count 388, MPV 11.1 H, Neut % (Auto) 57.8, Lymph % (Auto) 28.1, [place] % (Auto) 10.2 H, Eos % (Auto) 2.0, Baso % (Auto) 0.1, Neut # (Auto) 5.2, Lymph # (Auto) 2.5, [place] # (Auto) 0.9, Eos # (Auto) 0.2, Baso # (Auto) 0.0 I & O for Last 24 hours: Intake & Output 10/08/25 10/09/25 10/10/25 10/11/25 23:59 23:59 23:59 23:59 Intake Total 130 / 130 1308 / 1308 100 / 100 Output Total 500 / 500 Balance 130 / 130 808 / 808 100 / 100 Weight 162 lb 0.636 oz 162 lb 0.636 oz 161 lb 2.526 oz Microbiology Reports for the Last 24 Hours: Microbiology 10/09/25 21:00 Rectum CRE Surveillance Culture - Final Negative Constitutional Constitutional: mild distress and average body habitus *Routine HEENT Exam Head: Present normocephalic Eye: Present EOMI and PERRL ENT: Present mucous membranes moist *Routine Neck Exam Neck: Present supple; Absent lymphadenopathy *Routine Respiratory Exam Respiratory: Present decreased breath sounds *Routine Cardiovascular Exam Cardiovascular: Present Normal S1, Normal S2, tachycardia and irregularly irregular *Routine Abdominal Exam Abdominal: Present soft and normoactive bowel sounds; Absent tenderness *Routine Extremities Exam Extremities: Absent cyanosis, clubbing or edema *Routine Skin Exam Skin: Present warm; Absent rash *Routine Neurological Exam Neurological: Present alert and oriented X3 Progress Note: A&P Assessment and plan (1) Pulmonary emboli: Status: Acute (2) Cor pulmonale, acute: Status: Acute (3) GERD (gastroesophageal reflux disease): Status: Acute (4) Hypertension: Status: Acute (5) Hyperlipidemia: Status: Acute (6) Atrial fibrillation: Status: Acute (7) Anemia: Status: Acute (8) Chronic gastritis: Status: Acute (9) Chronic heart failure with preserved ejection fraction (HFpEF): Status: Acute Assessment and Plan Assessment and Plan for All Diagnoses:: Plan: 1. The patient was admitted here to [facility] for massive bilateral pulmonary emboli with RV strain. The patient was taken to the Structural Steel Ironworker and underwent mechanical thrombectomy of the right pulmonary emboli. Left pulmonary artery was not intervened on due to low HCT of 12 and 13 as reported by lab to the laboratory equipment installer during the procedure. It was decided to leave the left pulmonary artery alone because her oxygen improved after only intervening on the right pulmonary artery and her HCT was low. The patient tolerated this procedure well. She is currently on Lovenox for anticoagulation. 2. The patient is currently on Lovenox for anticoagulation. Will go ahead and convert her over to therapeutic Eliquis. Start Eliquis 10 mg twice daily for 1 week then Eliquis 5 mg twice daily thereafter for PEs. 3. The patient does have known atrial fibrillation. She is on metoprolol and diltiazem for rate control. She remains tachycardic this morning. Her metoprolol has already been increased. Will change her short acting diltiazem to diltiazem ER 240 mg p.o. daily for rate control of her atrial fibrillation. As mentioned above she will be restarted on Eliquis for long-term anticoagulation. 4. Her blood pressure is well-controlled. 5. Her LDL goal is less than 100. Her LDL is 43. 6. Echocardiogram shows a normal ejection fraction with mild AI, mild RV dilatation and moderate RV dysfunction. 7. The patient has known chronic HFpEF. She is currently asymptomatic. 8. The patient does have anemia. She underwent EGD yesterday which showed mild chronic gastritis and no evidence of bleeding. Her iron studies are negative and her Hemoccult stool is negative. GI is okay with resuming anticoagulation at this time. 9. Further recommendations will be made pending the patient's response to treatment. Thank you for the opportunity to help participate in the care of this patient. All recommendations and orders are per Dr. Zuñiga.
[2025-10-11] MEDS: dilTIAZem ER 240MG CAPSULE 240 MG PO (12:09)
[2025-10-11] MEDS: APIXABAN 5MG TABLET 10 MG PO ×2 (12:09→20:49)
[2025-10-11] MEDS: METOPROLOL TARTRATE 5MG/5ML VIAL 5 MG IV (15:11)
--- NOTE | 2025-10-11 17:18 | PC.NURSE ---
pt left icu with med surg staff
[2025-10-12] VITALS: BP 108/63; PULSE 110; PULSE 111; RESP 18; TEMP 36.9; O2SAT 92
--- NOTE | 2025-10-12 01:52 | PC.NURSE ---
patient O2 sat dropping to 86%, HR remaining 110s-120s, 2L NC applied, O2 93%, hospitalist notified.
[2025-10-12 03:43] VITALS: BMI 29.6
[2025-10-12 04:00] VITALS: BP 115/65; PULSE 100; PULSE 110; RESP 20; TEMP 36.6; O2SAT 97
[2025-10-12 06:24] LABS: Anion Gap 5.3 mEq/L (5-15); Blood Urea Nitrogen 6 mg/dl (7-17); Calcium 7.8 mg/dl (8.4-10.2); Carbon Dioxide 26 mmol/L (22.0-30.0); Chloride 102 mmol/L (98-107); Creatinine Clearance Estimated 54 mL/min (50-200); Creatinine,Serum 0.90 mg/dl (0.52-1.04); Estimated Glomerular Filt Rate 61 ml/min (>60); GFR (African American) 73 ML/MIN (>60); Glucose 97 mg/dl (74-100); Potassium 3.3 mmoL/L (3.5-5.1); Sodium 130 mmol/L (136-145)
[2025-10-12 06:40] LABS: Hematocrit 25.8 % (37.0-47.0); Hemoglobin 9.1 g/dL (12.2-16.2); Immature Granulocytes % 0.9 %; Mean Corpuscular HGB Conc 35.3 g/dL (31.8-35.4); Mean Corpuscular Hemoglobin 30.0 pg (27.0-31.2); Mean Corpuscular Volume 85.1 fl (81-99); Nucleated Red Blood Cells % 3.2 %; Platelet Count 418 K/mm3 (142-424); Red Blood Count 3.03 M/mm3 (4.20-5.40); Red Cell Distribution Width-SD 57.2 fL; White Blood Count 11.4 K/mm3 (4.8-10.8)
--- NOTE | 2025-10-12 07:32 | EXP.DC.SUM ---
General Admission date:: 10/09/25 Discharge date: 10/12/25 HPI HPI HPI: Mrs. Mancilla is a 80-year-old female who was admitted with pulmonary embolus. She does have a history of atrial fibrillation and a remote history of blood clots. Her anticoagulation was discontinued over the last 3 weeks because of concern for GI bleed and she was awaiting EGD and colonoscopy which was scheduled in [facility] within the next week. She became weak with dyspnea at the nursing facility and was brought to the ED. She had CT pulmonary embolus protocol and was found to have pulmonary emboli. Cardiology excepted the patient and she went to [facility] where she had prompt thrombectomy. Now, she has been off of Eliquis for 10 to 14 days and there is still concern for GI bleed. The patient's hemoglobin and hematocrit were 10.0 and 28.4 on admission. Her MCV was 83.8. The patient reports no abdominal pain, change in her bowel habits, melena, hematochezia or bright red blood per rectum. She did have a colonoscopy several years ago. Hospital Course Hospital Course Hospital Course: 80-year-old female who presented as transfer from [place] due to concern for cor pulmonale and submassive PE. Found to have right heart strain on CT with elevated troponin. Discussed case with hospital aides and assistants teacher, recommends transfer and acceptance for thrombectomy. I decided to admit for further care. Taken urgently to the [facility] on arrival. Successful thrombectomy of right pulmonary vasculature performed. Had improvement in oxygenation. Admitted to ICU initially for monitoring, showed gradual improvement. Was downgraded over 24 hours prior to discharge. Has been off on and off oxygen. Mainly needing it still when she sleeps but on room air during the day. Recommend continuing supplemental oxygen at night when she sleeps at 2 L. Tolerating oral anticoagulation. GI and cardiology both evaluated patient during admission. Stable discharge to rehab. Problems addressed as follows: Pulmonary emboli Cor pulmonale Atrial fibrillation -Came in in distress necessitating high levels of oxygen. Was taken urgently to the [facility]. Successful thrombectomy performed on 10/09. Was initially on Lovenox and transition to Eliquis after EGD. Continue Eliquis 10 mg twice daily for 5-1/2 more days and then transition to 5 mg twice daily thereafter indefinitely. Has also struggled with rate control with her A-fib. Have made adjustments to her rate controlling meds with improvement in rate between 80 and 100 on morning of discharge. Metoprolol succinate 100 mg twice daily, diltiazem extended release 240 mg daily. Formal echo was obtained during admission showing preserved ejection fraction. Would benefit from repeat CBC in 1 week to monitor stability of hemoglobin. Hemoglobin appears stable at this time at 9 on morning of discharge. - Follow-up with cardiology in 1 to 2 weeks. Depression: Continue Zoloft 25 mg daily Suspected GI bleed Anemia GERD with gastritis - Previously held anticoagulation due to suspected GI bleed. Unfortunately this likely led to her pulmonary emboli. GI was consulted during admission. Taken for EGD. Found to have some gastritis but no ulcerations. Appears chronic in nature. Hemoglobin is remained stable with no active signs of bleeding. Will continue pantoprazole 40 mg p.o. twice daily. Iron studies normal. Total time spent on discharge 36 minutes in counseling, documentation, chart review, and direct care with patient. Exam Data for Last 24 hours Vital signs and Labs for Last 24 Hours: Temp Pulse Resp BP Pulse Ox O2 Del Method O2 Flow Rate 97.8 F 100 H 20 115/65 97 Nasal Cannula 2 10/12/25 04:00 10/12/25 04:00 10/12/25 04:00 10/12/25 04:00 10/12/25 04:00 10/12/25 06:43 10/12/25 06:43 Laboratory Results - last 24 hr 10/11/25 07:21: WBC 8.9, RBC 3.27 L, Hgb 9.3 L, Hct 27.3 L, MCV 83.5, MCH 28.4, MCHC 34.1, RDW 20.5 H, Plt Count 388, MPV 11.1 H, Neut % (Auto) 57.8, Lymph % (Auto) 28.1, [place] % (Auto) 10.2 H, Eos % (Auto) 2.0, Baso % (Auto) 0.1, Neut # (Auto) 5.2, Lymph # (Auto) 2.5, [place] # (Auto) 0.9, Eos # (Auto) 0.2, Baso # (Auto) 0.0 10/12/25 05:58: WBC 11.4 H D, RBC 3.03 L, Hgb 9.1 L, Hct 25.8 L, MCV 85.1, MCH 30.0, MCHC 35.3, RDW 20.4 H, Plt Count 418, MPV 11.4 H, Neut % (Auto) 78.4, Lymph % (Auto) 11.7, [place] % (Auto) 8.1, Eos % (Auto) 0.8, Baso % (Auto) 0.1, Neut # (Auto) 8.9 H, Lymph # (Auto) 1.3, [place] # (Auto) 0.9, Eos # (Auto) 0.1, Baso # (Auto) 0.0, Sodium 130 L, Potassium 3.3 L, Chloride 102, Carbon Dioxide 26, Anion Gap 5.3, BUN 6 L, Creatinine 0.90, Estimated Creat Clear 54, Estimated GFR 61, Est GFR ( Amer) 73, Glucose 97, Calcium 7.8 L I & O for Last 24 hours: Intake & Output 10/09/25 10/10/25 10/11/25 10/12/25 23:59 23:59 23:59 23:59 Intake Total 130 / 130 1308 / 1308 570 / 810 240 / 240 Output Total 500 / 500 0 / 0 0 / 0 Balance 130 / 130 808 / 808 570 / 810 240 / 240 Weight 73.5 kg 73.5 kg 73.1 kg 73.1 kg Microbiology Reports for the Last 24 Hours: Microbiology 10/09/25 21:00 Rectum CRE Surveillance Culture - Final Negative Constitutional Constitutional: no acute distress, average body habitus, chronically ill appearing and cooperative *Routine HEENT Exam Head: Present normocephalic Eye: Present EOMI and PERRL ENT: Present mucous membranes moist *Routine Neck Exam Neck: Present supple; Absent lymphadenopathy *Routine Respiratory Exam Respiratory: Present decreased breath sounds; Absent accessory muscle use, respiratory distress, rhonchi, stridor or wheezes *Routine Cardiovascular Exam Cardiovascular: Present Normal S1, Normal S2 and irregularly irregular *Routine Abdominal Exam Abdominal: Present soft and normoactive bowel sounds; Absent tenderness *Routine Rectal Exam Patient deferred: visual exam *Routine Exam Patient deferred: external exam *Routine Extremities Exam Extremities: Absent cyanosis, clubbing or edema *Routine Skin Exam Skin: Present intact and warm; Absent rash Comments: Bruising on right arm from needlesticks and lab draws *Routine Neurological Exam Neurological: Present alert and moving all extremities; Absent altered mental status Comments: Oriented to self and his. Forgetful about family having come to visit. Appears at baseline mentation Results Data Completed and Pending Labs on day of discharge: Labs from last 24 hours 10/12/25 10/11/25 05:58 07:21 WBC 11.4 H D 8.9 RBC 3.03 L 3.27 L Hgb 9.1 L 9.3 L Hct 25.8 L 27.3 L MCV 85.1 83.5 MCH 30.0 28.4 MCHC 35.3 34.1 RDW 20.4 H 20.5 H Plt Count 418 388 MPV 11.4 H 11.1 H Neut % (Auto) 78.4 57.8 Lymph % (Auto) 11.7 28.1 [place] % (Auto) 8.1 10.2 H Eos % (Auto) 0.8 2.0 Baso % (Auto) 0.1 0.1 Neut # (Auto) 8.9 H 5.2 Lymph # (Auto) 1.3 2.5 [place] # (Auto) 0.9 0.9 Eos # (Auto) 0.1 0.2 Baso # (Auto) 0.0 0.0 Sodium 130 L Potassium 3.3 L Chloride 102 Carbon Dioxide 26 Anion Gap 5.3 BUN 6 L Creatinine 0.90 Estimated Creat Clear 54 Estimated GFR 61 Est GFR ( Amer) 73 Glucose 97 Calcium 7.8 L DS: Diagnosis Discharge Diagnosis (1) Pulmonary emboli: Status: Acute Code(s): I26.99 - Other pulmonary embolism without acute cor pulmonale Qualifiers: Acute cor pulmonale presence: with acute cor pulmonale Chronicity: acute Pulmonary embolism type: saddle Qualified Code(s): I26.02 - Saddle embolus of pulmonary artery with acute cor pulmonale (2) Cor pulmonale, acute: Status: Acute Code(s): I26.09 - Other pulmonary embolism with acute cor pulmonale (3) GERD (gastroesophageal reflux disease): Status: Acute Code(s): K21.9 - Gastro-esophageal reflux disease without esophagitis Qualifiers: Esophagitis presence: esophagitis presence not specified Qualified Code(s): K21.9 - Gastro-esophageal reflux disease without esophagitis (4) Hypertension: Status: Acute Code(s): I10 - Essential (primary) hypertension Qualifiers: Hypertension type: primary hypertension Qualified Code(s): I10 - Essential (primary) hypertension (5) Hyperlipidemia: Status: Acute Code(s): E78.5 - Hyperlipidemia, unspecified Qualifiers: Hyperlipidemia type: mixed hyperlipidemia Qualified Code(s): E78.2 - Mixed hyperlipidemia (6) Atrial fibrillation: Status: Acute Code(s): I48.91 - Unspecified atrial fibrillation Qualifiers: Atrial fibrillation type: unspecified chronic Qualified Code(s): I48.20 - Chronic atrial fibrillation, unspecified (7) Anemia: Status: Acute Code(s): D64.9 - Anemia, unspecified (8) Chronic gastritis: Status: Acute Code(s): K29.50 - Unspecified chronic gastritis without bleeding (9) Chronic heart failure with preserved ejection fraction (HFpEF): Status: Acute Code(s): I50.32 - Chronic diastolic (congestive) heart failure Meds Home Medications and Allergies Home Medications ?Medication ?Instructions ?Recorded ?Confirmed ?Type fenofibrate 150 mg capsule 145 mg PO DAILY 10/09/25 10/09/25 History ferrous sulfate 325 mg (65 mg 325 mg PO BID 10/09/25 10/09/25 History iron) tablet mirtazapine 15 mg tablet (Remeron) 15 mg PO HS 10/09/25 10/09/25 History pantoprazole 40 mg tablet,delayed 40 mg PO BID 10/09/25 10/09/25 History release (Protonix) sertraline 25 mg tablet 25 mg PO DAILY 10/09/25 10/09/25 History apixaban 5 mg tablet (Eliquis) 5 mg PO BID 30 days #60 tabs 10/12/25 Rx apixaban 5 mg tablet (Eliquis) 10 mg (2 x 5 mg) PO BID 6 days #22 10/12/25 Rx tabs diltiazem HCl 240 mg 240 mg PO DAILY 30 days #30 caps 10/12/25 Rx capsule,extended release 24 hr metoprolol succinate 100 mg 100 mg PO BID 30 days #60 tabs 10/12/25 Rx tablet,extended release 24 hr New Prescriptions to Start Prescriptions: norah [Eliquis] Jus Greenxaban [Eliquis] Jus Greentiazem HCl Jus Green metoprolol succinate Jus Green Allergies Allergy/AdvReac Type Severity Reaction Status Date / Time No Known Allergies Allergy Verified 10/09/25 14:06 Discharge Plan Disposition Patient Disposition: Xfer SNF Condition: Fair Discharge Order Discharge Orders: Discharge Order (Routine); Ordered 10/12/25 Ordered By: Jus Green Follow up Plan Follow up with: Radha Ruiz APRN [Nurse Practitioner, Cardiology] - Enter time for follow up Prescriptions/Medication Reconciliation: New Eliquis 5 mg Tablet 5 mg PO BID 30 Days Qty: 60 0RF Rx Instructions: start on morning of 10/18 after completing 10mg BID load course Eliquis 5 mg Tablet 10 mg PO BID 6 Days Qty: 22 0RF Rx Instructions: last dose evening of 10/17, then transition to 5mg BID. diltiazem HCl 240 mg Capsule,Extended Release 24hr 240 mg PO DAILY 30 Days Qty: 30 0RF metoprolol succinate 100 mg Tablet Extended Release 24 Hr 100 mg PO BID 30 Days Qty: 60 0RF Continued pantoprazole [Protonix] 40 mg Tablet,Delayed Release (Dr/Ec) 40 mg PO BID ferrous sulfate 325 mg (65 mg iron) Tablet 325 mg PO BID sertraline 25 mg Tablet 25 mg PO DAILY mirtazapine [Remeron] 15 mg Tablet 15 mg PO HS fenofibrate 150 mg Capsule 145 mg PO DAILY Discontinued metoprolol succinate 50 mg Tablet Extended Release 24 Hr 50 mg PO DAILY diltiazem HCl 60 mg Tablet 60 mg PO TID Problem Reconciliation Problems Reviewed?: Yes Patient Discharge Instructions ACTIVITY: Continue current activity DIET: continue same diet Print Language: [place] Providers Primary Care Provider: Provider,Referral Admit Provider: Jus Green Attending Provider: Jus Green
[2025-10-12 07:53] VITALS: BP 106/57; PULSE 99; RESP 18; TEMP 36.6; O2SAT 95
[2025-10-12 08:00] VITALS: PULSE 97
[2025-10-12] MEDS: dilTIAZem ER 240MG CAPSULE 240 MG PO (09:37)
[2025-10-12] MEDS: METOPROLOL SUCCINATE XL 100MG TABLET 100 MG PO (09:37)
[2025-10-12] MEDS: SODIUM CHLORIDE 0.9% 10ML VIAL 10 ML IV (09:37)
[2025-10-12] MEDS: PANTOPRAZOLE 40MG VIAL 40 MG IV (09:37)
[2025-10-12] MEDS: APIXABAN 5MG TABLET 10 MG PO (09:38)
[2025-10-12] MEDS: SERTRALINE 50MG TABLET 25 MG PO (09:38)
[2025-10-12] MEDS: POTASSIUM CHLORIDE 20MEQ TAB 40 MEQ PO (09:39)
--- NOTE | 2025-10-12 11:29 | EXP.CARD.PN ---
Subjective Subjective Date: 10/12/25 Time: 09:30 Principal diagnosis: Bilateral PEs, atrial fibrillation with RVR Interval history: This is a 80-year-old white female who presented to [facility] with weakness and fatigue. The patient was found to have massive bilateral pulmonary emboli with RV strain. She was then transferred here to [facility] and underwent thrombectomy yesterday for the massive bilateral pulmonary emboli. The patient was taken to the [facility] and underwent mechanical thrombectomy of the right pulmonary emboli. Left pulmonary artery was not intervened on due to low HCT reported by lab. She did tolerate the procedure well. The patient's long-term anticoagulation had been stopped because she had been having persistent diarrhea for the last 4 to 5 weeks and there was concern for a GI bleed. The patient developed these pulmonary emboli while off of her anticoagulation. The patient will have to be on anticoagulation at this time due to the bilateral PEs. Patient underwent EGD yesterday with GI and was found to have mild chronic gastritis with no evidence of bleeding. Her Hemoccult was negative for blood and her iron studies show that she is not iron deficiency. No colonoscopy is indicated at this time. Today she denies any chest pain or shortness of breath. She denies any edema. She denies any fever, chills, nausea, vomiting, diarrhea, PND or orthopnea. Patient remains in atrial fibrillation she is now rate controlled. Exam Data for Last 24 hours Vital signs and Labs for Last 24 Hours: Temp Pulse Resp BP Pulse Ox O2 Del Method O2 Flow Rate 97.9 F 97 H 18 106/57 L 95 Nasal Cannula 2 10/12/25 07:53 10/12/25 08:00 10/12/25 07:53 10/12/25 07:53 10/12/25 07:53 10/12/25 07:53 10/12/25 07:53 Laboratory Results - last 24 hr 10/12/25 05:58: WBC 11.4 H D, RBC 3.03 L, Hgb 9.1 L, Hct 25.8 L, MCV 85.1, MCH 30.0, MCHC 35.3, RDW 20.4 H, Plt Count 418, MPV 11.4 H, Neut % (Auto) 78.4, Lymph % (Auto) 11.7, [place] % (Auto) 8.1, Eos % (Auto) 0.8, Baso % (Auto) 0.1, Neut # (Auto) 8.9 H, Lymph # (Auto) 1.3, [place] # (Auto) 0.9, Eos # (Auto) 0.1, Baso # (Auto) 0.0, Sodium 130 L, Potassium 3.3 L, Chloride 102, Carbon Dioxide 26, Anion Gap 5.3, BUN 6 L, Creatinine 0.90, Estimated Creat Clear 54, Estimated GFR 61, Est GFR ( Amer) 73, Glucose 97, Calcium 7.8 L I & O for Last 24 hours: Intake & Output 10/09/25 10/10/25 10/11/25 10/12/25 23:59 23:59 23:59 23:59 Intake Total 130 / 130 1308 / 1308 570 / 810 580 / 580 Output Total 500 / 500 0 / 0 0 / 0 Balance 130 / 130 808 / 808 570 / 810 580 / 580 Weight 162 lb 0.636 oz 162 lb 0.636 oz 161 lb 2.526 oz 161 lb 2.526 oz Microbiology Reports for the Last 24 Hours: Microbiology 10/09/25 21:00 Rectum CRE Surveillance Culture - Final Negative Constitutional Constitutional: no acute distress, average body habitus, chronically ill appearing and cooperative *Routine HEENT Exam Head: Present normocephalic Eye: Present EOMI and PERRL ENT: Present mucous membranes moist *Routine Neck Exam Neck: Present supple; Absent lymphadenopathy *Routine Respiratory Exam Respiratory: Present decreased breath sounds; Absent accessory muscle use, respiratory distress, rhonchi, stridor or wheezes *Routine Cardiovascular Exam Cardiovascular: Present Normal S1, Normal S2 and irregularly irregular *Routine Abdominal Exam Abdominal: Present soft and normoactive bowel sounds; Absent tenderness *Routine Extremities Exam Extremities: Absent cyanosis, clubbing or edema *Routine Skin Exam Skin: Present intact and warm; Absent rash Comments: Bruising on right arm from needlesticks and lab draws *Routine Neurological Exam Neurological: Present alert and moving all extremities; Absent altered mental status Comments: Oriented to self and his. Forgetful about family having come to visit. Appears at baseline mentation Routine Psychiatric Exam Psychiatric: Present normal affect Progress Note: A&P Assessment and plan (1) Pulmonary emboli: Status: Acute (2) Cor pulmonale, acute: Status: Acute (3) GERD (gastroesophageal reflux disease): Status: Acute (4) Hypertension: Status: Acute (5) Hyperlipidemia: Status: Acute (6) Atrial fibrillation: Status: Acute (7) Anemia: Status: Acute (8) Chronic gastritis: Status: Acute (9) Chronic heart failure with preserved ejection fraction (HFpEF): Status: Acute Assessment and Plan Assessment and Plan for All Diagnoses:: Plan: 1. The patient was admitted here to [facility] for massive bilateral pulmonary emboli with RV strain. The patient was taken to the [facility] and underwent mechanical thrombectomy of the right pulmonary emboli. Left pulmonary artery was not intervened on due to low HCT of 12 and 13 as reported by lab to the laborer demolition during the procedure. It was decided to leave the left pulmonary artery alone because her oxygen improved after only intervening on the right pulmonary artery and her HCT was low. The patient tolerated this procedure well. 2. Patient will be on long-term anticoagulation with Eliquis. She will need to be on Eliquis 10 mg twice daily for 1 week then Eliquis 5 mg twice daily thereafter for PEs. 3. The patient does have known atrial fibrillation. The patient is now rate controlled on metoprolol and diltiazem ER. Will continue current doses. 4. Her blood pressure is well-controlled. 5. Her LDL goal is less than 100. Her LDL is 43. 6. Echocardiogram shows a normal ejection fraction with mild AI, mild RV dilatation and moderate RV dysfunction. 7. The patient has known chronic HFpEF. She is currently asymptomatic. 8. The patient does have anemia. She underwent EGD which showed mild chronic gastritis and no evidence of bleeding. Her iron studies are negative and her Hemoccult stool is negative. GI is okay with resuming anticoagulation at this time. 9. No further recommendations at this time from a cardiac standpoint. She can be discharged from a cardiac standpoint with follow-up in cardiology clinic in 1 to 2 weeks on an outpatient basis. The patient will need to be discharged on the following cardiac medications: Eliquis 10 mg p.o. twice daily x 1 week then Eliquis 5 mg p.o. twice daily thereafter Diltiazem ER 240 mg daily Toprol XL 100 mg p.o. twice daily Protonix 40 mg twice daily Thank you for the opportunity to help participate in the care of this patient. All recommendations and orders are per Dr. Zuñiga.
== END 2025-10-12 11:36 | DRG 164 ==
LOC: ICU 10-10 16:59 → 2ND 10-11 17:26
PROVIDERS: Internal Medicine; Internal Medicine Gastroenterology; Nurse Practitioner Family; Admitting Provider Internal Medicine Adolescent Medicine; Visit Provider Internal Medicine Adolescent Medicine
PROC: 02CQ3ZZ Extirpation of Matter from Right Pulmonary Artery, Percutaneous Approach (ICD-10-PCS; principal; 2025-10-09 14:05)
PROC: 0DJ08ZZ Inspection of Upper Intestinal Tract, Via Natural or Artificial Opening Endoscopic (ICD-10-PCS; principal; 2025-10-10 15:30)
DX: I26.02 Saddle embolus of pulmonary artery with acute cor pulmonale (principal); I48.20 Chronic atrial fibrillation, unspecified; I50.32 Chronic diastolic (congestive) heart failure; I26.09 Other pulmonary embolism with acute cor pulmonale; I11.0 Hypertensive heart disease with heart failure; F32.A Depression, unspecified; D64.9 Anemia, unspecified; E78.2 Mixed hyperlipidemia; K21.9 Gastro-esophageal reflux disease without esophagitis; E87.6 Hypokalemia; K29.50 Unspecified chronic gastritis without bleeding; Z79.899 Other long term (current) drug therapy
CPT/HCPCS: 34490; 36415; 80048; 80053; 80061; 80076; 82272; 82728; 83540; 83550; 84484; 85025; 87081; 93005; 93306; 97162; 97166; 97530; 99152; 99153; C1725; C1757; C1769; C1894; G0328; J0612; J1200; J1644; J1650; J2003; J2250; J2470; J2704; J3010; J7040; Q9967